=== PATIENT | female | born 1955 | race Hispanic/Latino ===

== ENCOUNTER 2019-07-07 15:32 | Inpatient (IN) | payer BC, MEDICARE ==
[~2019-07-07] VITALS: Ht 165.1 cm; Wt 82.1 kg
[~2019-07-07 15:32] MED LIST: CARVEDILOL12.5 MG PO; CLONIDINE HCL0.1 MG PO; COZAAR100 MG PO; TRAMADOL HCL50 MG PO; Z.0.CARVEDILOL12.5 M PO; Z.0.CATAPRES0.1 MG PO; Z.0.LOSARTAN POTAS10 PO; Z.0.PAROXETINE HCL20 PO
--- OUTSIDE RECORDS SUMMARY | 2019-07-11 15:13 | XMS REPORT ---
Author Author [facility] Address Unknown Phone Unavailable Care Team Providers Care Employee Relations Specialist Name Role Phone Unavailable Unavailable Problems This patient has no known problems. Allergies, Adverse Reactions, Alerts This patient has no known allergies or adverse reactions. Medications This patient has no known medications. Encounters Start Date/Time End Date/Time Encounter Type Admission Type Attending [facility] Care Department Encounter ID 2018-11-15 00:00:00 2018-11-15 00:00:00 Outpatient [facility] [id number] 2018-11-15 00:00:00 2018-11-15 00:00:00 Outpatient [facility] [id number] 2018-09-19 00:00:00 2018-09-19 00:00:00 Outpatient [facility] [id number] 2018-09-16 14:35:04 2018-09-16 14:35:04 Outpatient [facility] [id number] 2018-09-16 00:00:00 2018-09-16 00:00:00 Outpatient [facility] [id number] 2018-08-26 09:00:55 2018-08-26 09:00:55 Outpatient [facility] [id number] 2018-08-26 07:50:37 2018-08-26 07:50:37 Outpatient [facility] [id number] 2018-08-26 00:00:00 2018-08-26 00:00:00 Outpatient [facility] [id number] 2018-08-25 00:00:00 2018-08-25 00:00:00 Outpatient [facility] [id number] 2018-08-17 09:38:02 2018-08-17 09:38:02 Outpatient [facility] [id number] 2018-08-16 00:00:00 2018-08-16 00:00:00 Outpatient [facility] [id number] 2018-07-28 15:41:23 2018-07-28 15:41:23 Outpatient [facility] [id number] 2018-07-28 15:11:40 2018-07-28 15:11:40 Outpatient [facility] [id number] 2018-07-04 07:37:12 2018-07-04 07:37:12 Outpatient [facility] [id number] 2018-06-21 08:24:35 2018-06-21 08:24:35 Outpatient [facility] [id number] 2018-05-27 07:53:49 2018-05-27 07:53:49 Outpatient [facility] [id number] 2018-05-19 08:25:39 2018-05-19 08:25:39 Outpatient [facility] [id number] 2018-05-18 09:13:06 2018-05-18 09:13:06 Outpatient [facility] [id number] 2018-05-18 07:48:18 2018-05-18 07:48:18 Outpatient [facility] [id number] 2018-05-18 00:00:00 2018-05-18 00:00:00 Outpatient [facility] [id number] 2018-05-18 00:00:00 2018-05-18 00:00:00 Outpatient [facility] [id number] 2018-05-09 15:31:10 2018-05-09 15:31:10 Outpatient [facility] [id number] 2018-05-06 09:46:11 2018-05-06 09:46:11 Outpatient [facility] [id number] 2018-05-06 09:45:07 2018-05-06 09:45:07 Outpatient [facility] [id number] 2018-05-06 08:11:40 2018-05-06 08:11:40 Outpatient [facility] [id number]
--- NOTE | 2019-07-11 15:30 | NUR ---
PT ARRIVED TO THE UNIT. AAOX4. EDUCATED PT ABOUT FALL PRECAUTIONS. PT VERBALIZED UNDERSTANDING. CALL LIGHT WITH IN EASY REACH. BED IS LOW AND LOCKED. SIDE RAILS X2. BED ALARM IS ON. PT DENIES NEEDS AT THIS TIME.
--- NOTE | 2019-07-11 15:35 | NUR ---
PAGED DR. WILCOX AND LEFT MESSAGE REGARDING PT ARRIVAL. WAITING FOR THE RESPONSE FROM THE
[2019-07-11 16:00] VITALS: BP 145/66
[2019-07-11] MEDS ORDERED: SODIUM CHLORIDE 0.9% 250ML 250 ML IV ONE (16:00)
--- NOTE | 2019-07-11 16:00 | NUR ---
PAGED DR. Danii FLOWER REGARDING NEW CONSULT.
[2019-07-11] MEDS: INSULIN LISPRO 100 UNIT/1 ML 3ML VIAL SQ SCH ×2 (16:30→20:31)
[2019-07-11] MEDS ORDERED: DEXTROSE 50% SYRINGE 50 ML IV PRN ×2 (16:30→21:15)
[2019-07-11 16:36] VITALS: BP 157/74
[2019-07-11] MEDS ORDERED: METFORMIN HCL 500 MG TAB PO SCH (17:00)
[2019-07-11 17:12] LABS: BASOPHILS % 0.5 % (0.0-1.0); EOSINOPHILS # (AUTO) 0.3 (0.0-0.4); EOSINOPHILS % 3.8 % (0.0-6.0); HEMATOCRIT 24.3 % (34.2-44.1); HEMOGLOBIN 7.3 g/dL (12.0-16.0); LYMPHOCYTES # (AUTO) 1.6 (1.0-3.2); LYMPHOCYTES % 17.7 % (18.0-39.1); MEAN CORPUSCULAR HEMOGLOBIN 25.4 pg (28-32); MEAN CORPUSCULAR VOLUME 84.7 fL (81-99); MONOCYTES # (AUTO) 0.5 (0.2-0.8); MONOCYTES % 5.4 % (4.4-11.3); NEUTROPHILS # (AUTO) 6.3 (2.1-6.9); NEUTROPHILS % 71.9 % (38.7-80.0); PLATELET COUNT 354 x10e3/uL (140-360); RED BLOOD COUNT 2.87 x10e6/uL (3.6-5.1); RED CELL DISTRIBUTION WIDTH 15.1 % (11.7-14.4)
[2019-07-11] MEDS ORDERED: OMEPRAZOLE40 MG PO (17:28)
[2019-07-11] MEDS ORDERED: GABAPENTIN100 MG PO (17:28)
[2019-07-11] MEDS ORDERED: AMLODIPINE BESYL5 MG PO (17:28)
[2019-07-11] MEDS ORDERED: HYDROCHLOROTH12.5 MG PO (17:28)
[2019-07-11] MEDS ORDERED: METFORMIN HCL500 MG PO (17:28)
[2019-07-11] MEDS ORDERED: GLIMEPIRIDE2 MG PO (17:28)
[2019-07-11] MEDS ORDERED: FOLIC ACID0.4 MG PO (17:28)
[2019-07-11] MEDS ORDERED: ATORVASTATIN CA20 MG PO (17:28)
[2019-07-11 17:31] LABS: ALANINE AMINOTRANSFERASE 30 IU/L (0-55); ALBUMIN 3.8 g/dL (3.5-5.0); ALBUMIN/GLOBULIN RATIO 1.4 (0.8-2.0); ALKALINE PHOSPHATASE 81 IU/L (40-150); ANION GAP 14.2 mmol/L (8-16); BLOOD UREA NITROGEN 14 mg/dL (7-26); BUN/CREATININE RATIO 18 (6-25); CALCIUM 9.1 mg/dL (8.4-10.2); CARBON DIOXIDE 23 mmol/L (22-29); CHLORIDE 104 mmol/L (98-107); CREATININE, SERUM 0.77 mg/dL (0.57-1.11); EST GLOMERULAR FILTRATION RATE > 60 ML/MIN (60-); GLUCOSE 106 mg/dL (74-118); POTASSIUM 3.2 mmol/L (3.5-5.1); SODIUM 138 mmol/L (136-145)
[2019-07-11 17:33] VITALS: BP 157/74
[2019-07-11 17:34] LABS: INR 0.93
[2019-07-11 17:35] LABS: PARTIAL THROMBOPLASTIN TIME 29.4 seconds (23.8-35.5)
--- NOTE | 2019-07-11 17:44 | NUR ---
URDY WILCOX AND REPORTED HGB VALUE 7.3 AND K 3.2. 2 UNITS OF BLOOD TO GIVE PER DR. WILCOX.
[2019-07-11] MEDS: PANTOPRAZOLE 40 MG 10ML VIAL IV SCH (17:49)
[2019-07-11 17:55] VITALS: BP 145/66
[2019-07-11] MEDS ORDERED: POTASSIUM CHLORIDE 20 MEQ TAB CR PO ONE (18:15)
[2019-07-11 18:44] LABS: BILIRUBIN,URINE NEGATIVE (NEGATIVE); CLARITY,URINE SL CLOUDY (CLEAR); COLOR,URINE YELLOW (YELLOW); KETONES,URINE NEGATIVE (NEGATIVE); LEUKOCYTE ESTERASE ,URINE NEGATIVE (NEGATIVE); NITRITE,URINE NEGATIVE (NEGATIVE); PROTEIN,URINE DIPSTICK NEGATIVE (NEGATIVE); URINE UROBILINOGEN 0.2 mg/dL (0.2 - 1)
[2019-07-11 18:57] LABS: BACTERIA,URINE FEW /HPF; EPITHELIAL CELLS,URINE FEW /LPF; RBC,URINE 0-5 /HPF (0-5)
--- NOTE | 2019-07-11 19:00 | Diagnostic Imaging Report ---
EXAMINATION: CHEST 2 VIEWS INDICATION: ^new admit ^[id number] ^[id number] COMPARISON: None FINDINGS: PA and lateral views TUBES and LINES: None. LUNGS: Low lung volumes. There is no evidence of pneumonia or pulmonary edema. PLEURA: No pleural effusion or pneumothorax. HEART AND MEDIASTINUM: The cardiomediastinal silhouette is unremarkable. BONES AND SOFT TISSUES: No acute osseous lesion. Soft tissues are unremarkable. UPPER ABDOMEN: No free air under the diaphragm. IMPRESSION: No acute thoracic abnormality. Signed by: Dr. Maykel Gutierrez MD on 07/11/2019 6:57 PM
--- NOTE | 2019-07-11 19:05 | NUR ---
BEDSIDE SHIFT REPORT GIVEN TO THE SALES AGENT [employer] RN. PT DENIED FURTHER NEEDS.
--- NOTE | 2019-07-11 19:05 | NUR ---
Received bedside report from day nurse. Patient awake and resting in bed, no s/s of distress at this time. Bed locked and in low position, alarm on, call light placed within reach. Instructed to call for assistance if needed, verbalized understanding. All safety measures in place. Will continue to monitor.
[2019-07-11 20:10] VITALS: BP 135/67
[2019-07-11] MEDS: GABAPENTIN 100 MG CAP PO SCH (21:01)
[2019-07-11 21:47] VITALS: BP 135/67
--- NOTE | 2019-07-11 22:53 | History and Physical ---
CHIEF COMPLAINT: Black tarry stool. HISTORY OF PRESENT ILLNESS: This is a 63-year-old female with history of hypertension and type 2 diabetes, came in as a direct admission due to having black tarry stool ongoing for the last several days. The patient reports about 2 years ago in [place] she had an EGD, found to have a small bleeding ulcer, as what she told me at bedside, but could not elaborate further than that. She was told that the bleeding was very small. The patient now presents with complaints of black tarry stool. Denies any epigastric abdominal pain. Denies any [id number] NSAIDs. The patient is seen and evaluated at bedside on the medical floor. She is currently doing well with no other issues at this time. Reports last black tarry stool was yesterday. REVIEW OF SYSTEMS: Pertinent positives: Black tarry stool. The rest of 14-point review of systems have been reviewed with the patient and are negative. ALLERGIES: TO CODEINE. HOME MEDICATIONS: Amlodipine, Lipitor, gabapentin, loperamide, losartan, metformin, omeprazole, folic acid, hydrochlorothiazide. PAST MEDICAL HISTORY: Type 2 diabetes, hypertension, morbidly obese, history of gastric ulcer, and iron deficiency. PAST SURGICAL HISTORY: Had an EGD two years ago in [place]. FAMILY HISTORY: Hypertension and diabetes. SOCIAL HISTORY: No drugs. No alcohol. Does not smoke. Good social support. PHYSICAL EXAMINATION: VITAL SIGNS: Temperature is 98.6, pulse 81, respiratory rate is 18, blood pressure 135/67, and pulse ox 100% on 2 L nasal cannula. GENERAL: No acute distress. Alert and oriented x3. Cooperative on examination. HEENT: Head is normocephalic and atraumatic. Eyes; pupils are equal, round and reactive to light bilaterally. Extraocular movements intact bilaterally. Throat; no evidence of erythema or exudates in the posterior pharynx. Has poor dentition. NECK: Supple. Good range of motion. PULMONARY: Clear to auscultation bilaterally. No wheezing, rales, or rhonchi. No crackles appreciated. CARDIOVASCULAR: Positive S1, S2. No murmurs, rubs, or gallops appreciated. ABDOMEN: Soft, nondistended, and nontender to palpation. Bowel sounds present. MUSCULOSKELETAL: Strength is 5/5 throughout. No evidence of any muscle deficits on examination. No weakness appreciated. NEUROLOGIC: Cranial nerves II through XII grossly intact. No evidence of any neurological deficits on exam. SKIN: Intact. Warm to touch. Good cap refill. PSYCHIATRIC: Normal affect and mood. EXTREMITIES: No edema. Good range of motion throughout. LABORATORY DATA: Labs show white count is 8.7, hemoglobin 7.3, hematocrit 24, platelets of 354. Coagulation; PT 13, INR 0.93, PTT 29. Chemistry; sodium 138, potassium 3.3, chloride 104, bicarb 23, anion gap of 14, BUN is 14, creatinine 0.77, glucose 106. A1c 5.5, calcium 9.1. LFTs within normal range. Total protein 6.6, albumin is 3.8. Urinalysis was negative. Microbiology, none. IMAGING STUDIES: Chest x-ray was negative. IMPRESSION: 1. Black tarry stool concerns for upper GI bleed with underlying anemia. 2. Hypertension. 3. Type 2 diabetes. PLAN: At this time, continue with Protonix 40 mg IV b.i.d. N.p.o. after midnight. GI consulted. The patient will likely need an EGD possibly tomorrow. Now, like the patient has an upper GI bleed based on her story, of note has had an EGD about two years ago, was told that she had some small area of bleeding, seems to be more of an ulcer based on her story. Hold all NSAIDs. The patient will get 2 units packed RBCs. She has been typed and screened as well. Resume same antihypertensive medications. Put her on insulin sliding scale. Diabetic diet. N.p.o. after midnight. Hold all anticoagulation. Consultants, GI. MD JAKE Hernandez/LAYLA /[id number]
[2019-07-11] MEDS ORDERED: SODIUM CHLORIDE 0.9% 250ML 250 ML ONE (23:17)
--- NOTE | 2019-07-11 23:37 | NUR ---
Transfusion of first unit of blood initiated. Patient in stable condition, no s/s of distress or transfusion reaction, vital signs stable from baseline. Will continue to monitor.
--- NOTE | 2019-07-11 23:52 | NUR ---
Dr. Alanis here to see patient. Plans to do EGD tomorrow. Will place patient on NPO diet after midnight.
[2019-07-12] VITALS (8 sets, daily range): BP systolic 104–160; BP diastolic 61–75
--- NOTE | 2019-07-12 02:02 | NUR ---
Transfusion of first unit of blood completed. Vital signs stable from baseline, no s/s of distress or transfusion reaction. Will administer second unit.
[2019-07-12] MEDS ORDERED: SODIUM CHLORIDE 0.9% 250ML 250 ML ONE (02:14)
--- NOTE | 2019-07-12 02:29 | NUR ---
Transfusion of second unit of blood initiated. Patient in stable condition, vital signs stable from baseline, no s/s of distress or transfusion reaction. Will continue to monitor.
--- NOTE | 2019-07-12 05:02 | NUR ---
Second unit of blood completed. Patient in stable condition, vital signs stable from baseline, no s/s of distress or transfusion reaction. All safety measures in place. Will continue to monitor.
--- NOTE | 2019-07-12 06:58 | NUR ---
Bedside report given to day nurse. Patient awake and resting in bed, no s/s of distress at this time. All safety measures in place.
--- NOTE | 2019-07-12 07:00 | NUR ---
RECEIVED PATIENT AWAKE RESTING IN BED NO S/S OF DISTRESS. BED LOW, WHEELS LOCKED, SIDE RAILS X2. CALL LIGHT IN REACH WILL CONTINUE TO MONITOR PATIENT.
[2019-07-12] MEDS: INSULIN LISPRO 100 UNIT/1 ML 3ML VIAL SQ SCH ×4 (07:30→21:00)
[2019-07-12] MEDS: GABAPENTIN 100 MG CAP PO SCH ×3 (07:37→21:57)
[2019-07-12 07:38] LABS: BASOPHILS % 0.4 % (0.0-1.0); EOSINOPHILS # (AUTO) 0.4 (0.0-0.4); EOSINOPHILS % 4.3 % (0.0-6.0); HEMATOCRIT 29.1 % (34.2-44.1); HEMOGLOBIN 9.2 g/dL (12.0-16.0); LYMPHOCYTES % 24.1 % (18.0-39.1); MEAN CORPUSCULAR HEMOGLOBIN 26.6 pg (28-32); MEAN CORPUSCULAR HGB CONC 31.6 g/dL (31-35); MEAN CORPUSCULAR VOLUME 84.1 fL (81-99); MONOCYTES # (AUTO) 0.4 (0.2-0.8); NEUTROPHILS # (AUTO) 5.5 (2.1-6.9); NEUTROPHILS % 65.5 % (38.7-80.0); PLATELET COUNT 327 x10e3/uL (140-360); RED BLOOD COUNT 3.46 x10e6/uL (3.6-5.1); RED CELL DISTRIBUTION WIDTH 14.6 % (11.7-14.4)
[2019-07-12] MEDS ORDERED: GLIMEPIRIDE 2 MG TAB PO SCH (08:00)
[2019-07-12 08:24] LABS: % IRON SATURATION 10 % (15-50); BLOOD UREA NITROGEN 13 mg/dL (7-26); BUN/CREATININE RATIO 17 (6-25); CARBON DIOXIDE 24 mmol/L (22-29); CHLORIDE 105 mmol/L (98-107); CREATININE, SERUM 0.75 mg/dL (0.57-1.11); EST GLOMERULAR FILTRATION RATE > 60 ML/MIN (60-); GLUCOSE 115 mg/dL (74-118); IRON 38 ug/dL (50-170); SODIUM 139 mmol/L (136-145); TOTAL IRON BINDING CAPACITY 382 ug/dL (261-478); TRANSFERRIN 273 mg/dL (180-382)
[2019-07-12] MEDS: PANTOPRAZOLE 40 MG 10ML VIAL IV SCH ×2 (08:30→16:30)
[2019-07-12 08:46] LABS: FERRITIN 10.58 ng/mL (4.63-204.00)
--- NOTE | 2019-07-12 10:25 | NUR ---
Pt. expressed no spiritual or emotional concerns at this time. Civil Lawyer provided hospitality, prayer and information on how to reach deckhand clam dredge, if needed. No need to follow at this time. TENISHA DIEGO Civil Lawyer Spiritual Care Department O: [phone]
--- NOTE | 2019-07-12 10:30 | NUR ---
PATIENT A/O X3, EVEN RESPIRATIONS ON 2LNC. LUNG SOUNDS CLEAR. LEFT AC 20 GAUGE IV SL. PATIENT NPO FOR EGD TODAY. NO PAIN AT THIS TIME. PATIENT AMBULATES INDEPENDENTLY. TELEMETRY #6 SR. CALL LIGHT IN REACH WILL CONTINUE TO MONITOR PATIENT.
--- NOTE | 2019-07-12 13:31 | NUR ---
PATIENT LEFT FOR EGD AT THIS TIME IN STABLE CONDITION.
--- NOTE | 2019-07-12 15:35 | NUR ---
PATIENT BACK FROM EGD IN STABLE CONDITION. NO S/S OF DISTRESS. CALL LIGHT IN REACH WILL CONTINUE TO MONITOR PATIENT.
[2019-07-12] MEDS: HYDROCHLOROTHIAZIDE 25 MG TAB PO SCH (16:30)
[2019-07-12] MEDS: AMLODIPINE BESYLATE 5 MG TAB PO SCH (16:30)
[2019-07-12] MEDS: ATORVASTATIN 10 MG TAB PO SCH (16:30)
[2019-07-12] MEDS: LOSARTAN POTASSIUM 100 MG TAB PO SCH (16:30)
[2019-07-12] MEDS: FERROUS SULFATE 325 MG TAB PO SCH (16:30)
[2019-07-12] MEDS: FOLIC ACID 1 MG TAB PO SCH (16:30)
--- NOTE | 2019-07-12 19:30 | NUR ---
BEDSIDE SHIFT REPORT RECEIVED FROM DAY RN. PT IS ALERT AND ORIENTED x3. RESPIRATIONS ARE EVEN AND UNLABORED.TELE ON. SL LEFT AC 20 G- SITE HEALTHY. DENIES PAIN. VOIDING WITHOUT DIFFICULTY IN BATHROOM. CALL LIGHT WITHIN REACH. BED IN LOW POSITION. REMAINS ON CLEAR LIQUIDS.
[2019-07-12] MEDS ORDERED: PROPOFOL IV EMULSION 10 MG/ML 50 ML VIAL ONE (19:42)
[2019-07-12] MEDS ORDERED: MIDAZOLAM HCL 2 MG/2 ML VIAL ONE (20:00)
--- NOTE | 2019-07-12 20:17 | Operative Report ---
DATE OF PROCEDURE: 07/12/2019 SURGEON: Beto Alanis MD PROCEDURE: EGD with polypectomy and with biopsies. ADDITIONAL REFERRING PHYSICIAN: Dr. Harsh Benoit. INDICATION FOR EGD: Anemia, melena. MEDICATIONS: The patient was done under MAC, please see anesthesiologist's note. PROCEDURE IN DETAIL: With the patient in left lateral decubitus position, a flexible fiberoptic Olympus gastroscope was introduced into the esophagus under direct visualization without any difficulty. There were some patchy erythema noted in distal esophagus. There was a minute tongue of velvety red mucosa was noted to extend proximally from the GE junction and biopsies were obtained to rule out Myers's. The scope was then advanced with ease into the stomach. Mucosa overlying the antrum and the body revealed some patchy erythema and moderate edema, and biopsies were obtained, sent to stain for H. pylori. Some hyperplastic-appearing polyps were also noted in the body of the stomach and some were partially excised with cold biopsy forceps. The pylorus was of normal contour and shape, it was intubated with ease and the scope was advanced all the way to the second portion of the duodenum. The scope was then withdrawn slowly. Mucosa overlying the proximal second portion and the duodenal bulb appeared to be within normal limits. The scope was then withdrawn back into the stomach and retroflexed. Mucosa overlying the fundus and the cardia appeared to be within normal limits. The scope was then straightened out, it was subsequently withdrawn. The patient tolerated the procedure well. IMPRESSION: 1. Distal esophagitis, mild. 2. Rule out Myers esophagus. 3. Gastritis, biopsied. Biopsies sent to stain for Helicobacter pylori. 4. Gastric polyps, body, hyperplastic-appearing, some were partially excised with the cold biopsy forceps. PLAN: Follow up histology. Initiate Protonix 40 mg one p.o. q.a.m. before meals. Findings do not necessarily explain the patient's melena or anemia. She will need a colonoscopy. Beto Alanis MD [facility]/MODL /[id number] cc: MD Galilea Gonzalez MD
--- NOTE | 2019-07-12 22:47 | Progress Note ---
DATE: 07/12/2019 Medicine Progress Note SUBJECTIVE: The patient is scheduled for EGD later today. OBJECTIVE: VITAL SIGNS: Temperature is 97.3, pulse is 90, respiratory rate is 18, blood pressure is 160/71, pulse ox 97% on 2 L nasal cannula. GENERAL: No acute distress. Alert and oriented x3. Cooperative on examination. HEENT: Head is normocephalic and atraumatic. Eyes; pupils are equal, round, and reactive to light bilaterally. Extraocular movements intact bilaterally. Throat; no evidence of erythema or exudates in the posterior pharynx. She has poor dentition. NECK: Supple. Good range of motion. PULMONARY: Clear to auscultation bilaterally. No wheezing, rales, or rhonchi. No crackles appreciated. CARDIOVASCULAR: Positive S1 and S2. No murmurs, rubs, or gallops appreciated. ABDOMEN: Soft, nondistended, and nontender to palpation. Bowel sounds present. MUSCULOSKELETAL: Strength is 5/5 throughout. No evidence of any muscle deficits on examination. No weakness appreciated. NEUROLOGIC: Cranial nerves II through XII grossly intact. No evidence of any neurological deficits on exam. SKIN: Intact. Warm to touch. Good cap refill. PSYCHIATRIC: Normal affect and mood. EXTREMITIES: No edema. Good range of motion throughout. LABORATORY DATA: Show white count was 8.3, hemoglobin 9.2, hematocrit is 29.1, and platelets of 327. Chemistry; sodium 139, potassium 4, chloride 105, bicarb 24, anion gap of 14, BUN is 13, creatinine is 0.75, glucose is 115. Iron saturation 10%. IMAGING STUDIES: None new. IMPRESSION: 1. Melena, concerns for upper gastrointestinal bleed, now status post EGD that showed esophagitis and gastritis. 2. Anemia, status post blood transfusion. 3. Hypertension. 4. Type 2 diabetes. PLAN: At this time, EEG results noted above. She will go home eventually with oral Protonix 40 mg daily. She is now initiated on a regular diet. She will need a colonoscopy at a later date. If she does well, she can potentially be discharged home tomorrow. Galilea Morejon MD [facility]/MODL /[id number]
[2019-07-12] MEDS ORDERED: BISACODYL 5 MG TAB EC PO ONE ×2 (23:15)
--- NOTE | 2019-07-12 23:15 | NUR ---
DR FLOWER HERE TO SEE PT. PT IS TO HAVE COLONOSCOPY IN AM. NEW ORDERS FOR PREP RECEIVED. PT NPO AFTER 0700. INSTRUCTIONS REVEIWED WITH PT.
[2019-07-12] MEDS ORDERED: BISACODYL 5 MG TAB EC PO SCH (23:45)
[2019-07-13] VITALS (8 sets, daily range): BP systolic 131–149; BP diastolic 63–70
[2019-07-13] MEDS ORDERED: CITRATE OF MAGNESIA 300ML BOTTLE PO ONE ×2 (05:00→07:00)
[2019-07-13 06:02] LABS: BASOPHILS # (AUTO) 0.1 (0.0-0.1); BASOPHILS % 0.5 % (0.0-1.0); EOSINOPHILS # (AUTO) 0.4 (0.0-0.4); EOSINOPHILS % 4.3 % (0.0-6.0); HEMATOCRIT 33.4 % (34.2-44.1); HEMOGLOBIN 10.5 g/dL (12.0-16.0); LYMPHOCYTES # (AUTO) 2.2 (1.0-3.2); LYMPHOCYTES % 23.2 % (18.0-39.1); MEAN CORPUSCULAR HEMOGLOBIN 26.1 pg (28-32); MEAN CORPUSCULAR HGB CONC 31.4 g/dL (31-35); MEAN CORPUSCULAR VOLUME 83.1 fL (81-99); MONOCYTES # (AUTO) 0.7 (0.2-0.8); NEUTROPHILS # (AUTO) 6.1 (2.1-6.9); NEUTROPHILS % 64.5 % (38.7-80.0); PLATELET COUNT 433 x10e3/uL (140-360); RED BLOOD COUNT 4.02 x10e6/uL (3.6-5.1); RED CELL DISTRIBUTION WIDTH 14.8 % (11.7-14.4)
[2019-07-13 06:22] LABS: ANION GAP 14.4 mmol/L (8-16); BLOOD UREA NITROGEN 8 mg/dL (7-26); BUN/CREATININE RATIO 10 (6-25); CALCIUM 9.9 mg/dL (8.4-10.2); CARBON DIOXIDE 24 mmol/L (22-29); CHLORIDE 103 mmol/L (98-107); CREATININE, SERUM 0.83 mg/dL (0.57-1.11); EST GLOMERULAR FILTRATION RATE > 60 ML/MIN (60-); GLUCOSE 122 mg/dL (74-118); POTASSIUM 3.4 mmol/L (3.5-5.1); SODIUM 138 mmol/L (136-145)
--- NOTE | 2019-07-13 07:00 | NUR ---
RECEIVED PATIENT AWAKE RESTING IN BED NO S/S OF DISTRESS. BED LOW, WHEELS LOCKED, SIDE RAILS X2. CALL LIGHT IN REACH WILL CONTINUE TO MONITOR PATIENT.
[2019-07-13] MEDS: INSULIN LISPRO 100 UNIT/1 ML 3ML VIAL SQ SCH ×4 (07:30→20:25)
[2019-07-13] MEDS: GABAPENTIN 100 MG CAP PO SCH ×3 (07:49→21:01)
[2019-07-13] MEDS: PANTOPRAZOLE 40 MG 10ML VIAL IV SCH ×2 (07:57→16:34)
--- NOTE | 2019-07-13 11:28 | NUR ---
PATIENT LEFT FOR COLONOSCOPY AT THIS TIME IN STABLE CONDITION.
[2019-07-13] MEDS ORDERED: BISACODYL 5 MG TAB EC PO ONE (12:15)
--- NOTE | 2019-07-13 13:27 | NUR ---
PATIENT BACK FROM COLONOSCOPY IN STABLE CONDITION. NO S/S OF DISTRESS.
[2019-07-13] MEDS: FERROUS SULFATE 325 MG TAB PO SCH (14:29)
[2019-07-13] MEDS: FOLIC ACID 1 MG TAB PO SCH (14:29)
[2019-07-13] MEDS: LOSARTAN POTASSIUM 100 MG TAB PO SCH (14:29)
[2019-07-13] MEDS: ATORVASTATIN 10 MG TAB PO SCH (14:29)
[2019-07-13] MEDS: HYDROCHLOROTHIAZIDE 25 MG TAB PO SCH (14:29)
[2019-07-13] MEDS: AMLODIPINE BESYLATE 5 MG TAB PO SCH (14:30)
[2019-07-13] MEDS ORDERED: FENTANYL CITRATE/PF 100MCG/2 ML INJ ONE (18:58)
[2019-07-13] MEDS ORDERED: MIDAZOLAM HCL 2 MG/2 ML VIAL ONE (18:58)
--- NOTE | 2019-07-13 19:32 | NUR ---
RECEIVED SHIFT REPORT FROM DAY RN AT BEDSIDE. PT IS ALERT AND ORIENTED X3. PT UP IN ROOM. 20G SL IN LEFT AC INTACT. RESPIRATIONS ARE EVEN AND UNLABORED. PT VOIDING WITHOUT DIFFICULTY. CALL LIGHT WITHIN REACH. BED IN LOW POSITION.PT DENIES PAIN.
--- NOTE | 2019-07-13 19:41 | Operative Report ---
DATE OF PROCEDURE: 07/13/2019 SURGEON: Beto Alanis MD PROCEDURE: Colonoscopy with polypectomy and biopsies. INDICATION FOR COLONOSCOPY: Anemia, melena. EGD findings did not explain the patient's anemia or the melenic stools. MEDICATIONS: The patient was done under MAC, please see anesthesiologist's note. PROCEDURE IN DETAIL: With the patient in left lateral decubitus position, a flexible fiberoptic Olympus colonoscope was inserted into the rectum with ease and advanced all the way to the cecum. One polyp was hot snared from the cecum. An additional polyp was hot snared from the ascending colon. The transverse colon was within normal limits. One polyp was hot snared from the descending colon. The sigmoid colon appeared to be within normal limits. Focal nodularity was noted in the distal rectum, that was biopsied. The scope was then retroflexed into the distal rectum and small internal hemorrhoids were noted, none of which was actively bleeding. The scope was then straightened out, it was subsequently withdrawn. The patient tolerated the procedure well. IMPRESSION: 1. Cecal polyp, hot snared. 2. Ascending colon polyp, hot snared. 3. Descending colon polyp, hot snared. 4. Focal nodularity in the distal rectum, biopsied. 5. Internal hemorrhoids, none actively bleeding. PLAN: Follow up histology. Initiate high-fiber, low-fat diet. Initiate high-fiber supplement. The patient will need a capsule endoscopy. Beto Alanis MD [facility]/MODL /[id number] cc: Galilea Morejon MD
[2019-07-13] MEDS ORDERED: POTASSIUM CHLORIDE 20 MEQ TAB CR PO ONE (21:30)
--- NOTE | 2019-07-13 22:20 | Progress Note ---
DATE: 07/13/2019 Medicine Progress Note SUBJECTIVE: The patient is doing well today. She underwent a colonoscopy. PHYSICAL EXAMINATION: VITAL SIGNS: Temperature is 97.4, pulse 83, respiratory rate 16, blood pressure 138/65, pulse ox 97% on room air. GENERAL: Not in acute distress. Alert and oriented x3. Cooperative on examination. HEENT: Head; normocephalic, atraumatic. Eyes; pupils are equal, round, and reactive to light bilaterally. Extraocular movements intact bilaterally. Throat; no evidence of erythema or exudates in the posterior pharynx. Has poor dentition. NECK: Supple. Good range of motion. PULMONARY: Clear to auscultation bilaterally. No wheezing, no rales, no rhonchi, no crackles appreciated. CARDIOVASCULAR: Positive S1 and S2. No murmurs, rubs, or gallops appreciated. ABDOMEN: Soft, nondistended, and nontender to palpation. Bowel sounds present. MUSCULOSKELETAL: Strength is 5/5 throughout. No evidence of any muscle deficits on examination. No weakness appreciated. NEUROLOGIC: Cranial nerve II through XII grossly intact. No evidence of any neurological deficits on exam. SKIN: Intact. Warm to touch. Good cap refill. PSYCHIATRIC: Normal affect and mood. EXTREMITIES: No edema. Good range of motion throughout. LABORATORY DATA: Show white count 9.4, hemoglobin 10.5, hematocrit is 33, platelets of 433. Coagulation; PT 13, INR 0.93, PTT 29. Chemistry; sodium 138, potassium 3.4, chloride 103, bicarb 24, anion gap of 14, BUN is 8, creatinine is 0.83, glucose is 122. MICROBIOLOGY: None. IMAGING STUDIES: None. IMPRESSION: 1. Melena concerns for upper gastrointestinal bleed, status post esophagogastroduodenoscopy shows esophagitis and gastritis, status post colonoscopy with no evidence of any active bleeding. 2. Anemia, status post blood transfusion with much improved hemoglobin. 3. Hypertension. 4. Type 2 diabetes. PLAN: EGD results noted. She is on Protonix. Colonoscopy performed today shows evidence of polyps that were removed, but no evidence of any bleeding. If her hemoglobin is stable tomorrow, discharge home. Resume diet. Plan to discharge tomorrow. MD JAKE Hernandez/RUDDYL /[id number]
[2019-07-14] VITALS: BP 123/63
[2019-07-14 04:00] VITALS: BP 138/69
[2019-07-14 06:33] LABS: BASOPHILS # (AUTO) 0.1 (0.0-0.1); BASOPHILS % 0.5 % (0.0-1.0); EOSINOPHILS # (AUTO) 0.3 (0.0-0.4); EOSINOPHILS % 3.7 % (0.0-6.0); HEMATOCRIT 32.6 % (34.2-44.1); HEMOGLOBIN 10.1 g/dL (12.0-16.0); LYMPHOCYTES # (AUTO) 1.9 (1.0-3.2); LYMPHOCYTES % 20.4 % (18.0-39.1); MEAN CORPUSCULAR HEMOGLOBIN 25.9 pg (28-32); MEAN CORPUSCULAR VOLUME 83.6 fL (81-99); MONOCYTES # (AUTO) 0.6 (0.2-0.8); MONOCYTES % 6.3 % (4.4-11.3); NEUTROPHILS # (AUTO) 6.3 (2.1-6.9); NEUTROPHILS % 68.6 % (38.7-80.0); PLATELET COUNT 352 x10e3/uL (140-360); RED CELL DISTRIBUTION WIDTH 14.9 % (11.7-14.4)
[2019-07-14 06:47] LABS: ANION GAP 12.9 mmol/L (8-16); BLOOD UREA NITROGEN 11 mg/dL (7-26); BUN/CREATININE RATIO 12 (6-25); CALCIUM 9.4 mg/dL (8.4-10.2); CARBON DIOXIDE 27 mmol/L (22-29); CHLORIDE 103 mmol/L (98-107); EST GLOMERULAR FILTRATION RATE > 60 ML/MIN (60-); GLUCOSE 145 mg/dL (74-118); POTASSIUM 3.9 mmol/L (3.5-5.1); SODIUM 139 mmol/L (136-145)
--- NOTE | 2019-07-14 07:00 | NUR ---
BEDSIDE SHIFT REPORT RECEIVED PT IN STABLE CONDITION, DENIES PAIN AT THIS TIME, UPDATED ON POC VOCIED UNDERSTANDING, L AC 20G NO SS OF INFILTRATION NOTED, CALL LIGHT IN REACH WILL CONTINUE TO MONITOR
[2019-07-14] MEDS: INSULIN LISPRO 100 UNIT/1 ML 3ML VIAL SQ SCH ×2 (07:30→11:30)
[2019-07-14 08:00] VITALS: BP 132/73
[2019-07-14 08:51] VITALS: BP 132/73
[2019-07-14] MEDS: GABAPENTIN 100 MG CAP PO SCH (09:17)
[2019-07-14] MEDS: PANTOPRAZOLE 40 MG 10ML VIAL IV SCH (09:17)
[2019-07-14] MEDS: FOLIC ACID 1 MG TAB PO SCH (09:17)
[2019-07-14] MEDS: FERROUS SULFATE 325 MG TAB PO SCH (09:17)
[2019-07-14] MEDS: HYDROCHLOROTHIAZIDE 25 MG TAB PO SCH (09:17)
[2019-07-14] MEDS: ATORVASTATIN 10 MG TAB PO SCH (09:17)
[2019-07-14] MEDS: LOSARTAN POTASSIUM 100 MG TAB PO SCH (09:17)
[2019-07-14] MEDS: AMLODIPINE BESYLATE 5 MG TAB PO SCH (09:17)
[2019-07-14 12:00] VITALS: BP 131/68
--- NOTE | 2019-07-14 22:24 | Discharge Summary ---
FINAL DISCHARGE DIAGNOSES: 1. Melena secondary to upper gastrointestinal bleed, status post EGD that showed esophagitis and gastritis, status post colonoscopy with no evidence of any active bleeding. 2. Anemia secondary to #1. 3. Hypertension. 4. Type 2 diabetes. CONSULTANTS: GI. VITAL SIGNS: Temperature is 97.9, pulse 76, respirations 20, blood pressure 131/68, pulse ox 97% on room air. LABORATORY FINDINGS: Show white count 9.2, hemoglobin 10, hematocrit 33, platelets of 352. Chemistry; sodium 139, potassium 3.9, chloride 103, bicarb 27, anion gap of 12, BUN is 11, creatinine is 0.9, glucose 145, calcium is 9.4. Iron saturation was 10%. Total bilirubin is 0.4, AST 25, ALT 30, albumin 3.8. Urinalysis negative. MICROBIOLOGY: None. IMAGING STUDIES: Chest x-ray was negative. HOSPITAL COURSE: A 63-year-old female, who came in as a direct admission from Dr. Harsh Benoit's clinic with worsening hemoglobin levels and complaints of black tarry stool. While here, the patient was found to have a hemoglobin level of 7.3, status post blood transfusion with a hemoglobin level on discharge of 10.1. The patient underwent EGD, found to have gastritis and esophagitis as well as underwent colonoscopy that showed no evidence of any bleeding. While here, she was on Protonix b.i.d. orally. Her hemoglobin improved tremendously. Blood pressure and diabetes were well managed and controlled. She was tolerating diet well and she was cleared for discharge by GI. On the day of discharge, vital signs were stable. Labs reviewed and stable. The patient is seen and evaluated and examined thoroughly on the day of discharge with no other complaints. The patient verbalized understanding and agrees to plan of care to follow up accordingly as an outpatient with primary care physician in 1 week and GI specialist in 2 weeks' time for close followup as well as pathology results of the biopsies. MEDICATIONS: See med reconciliation form. DISPOSITION: Home. CONDITION: Stable. DIET: Heart healthy. In the event of worsening symptoms, the patient was advised come back to the ED for further evaluation. Discharge summary took greater than 35 minutes. MD JAKE Hernandez/RUDDYL /[id number]
== END 2019-07-14 14:42 | disposition home or self-care (01) | DRG 378 ==
LOC: MED/SURG 07-11 15:10
PROVIDERS: ADMIT Internal Medicine; ATTEND Internal Medicine
PROC: 30233N1 Transfusion of Nonautologous Red Blood Cells into Peripheral Vein, Percutaneous Approach (ICD-10-PCS; principal; 2019-07-11)
PROC: 0DB68ZX Excision of Stomach, Via Natural or Artificial Opening Endoscopic, Diagnostic (ICD-10-PCS; 2019-07-12)
PROC: 0DBK8ZX Excision of Ascending Colon, Via Natural or Artificial Opening Endoscopic, Diagnostic (ICD-10-PCS; 2019-07-13)
PROC: 0DBP8ZX Excision of Rectum, Via Natural or Artificial Opening Endoscopic, Diagnostic (ICD-10-PCS; 2019-07-13)
PROC: 0DBM8ZX Excision of Descending Colon, Via Natural or Artificial Opening Endoscopic, Diagnostic (ICD-10-PCS; 2019-07-13)
PROC: 0DBH8ZX Excision of Cecum, Via Natural or Artificial Opening Endoscopic, Diagnostic (ICD-10-PCS; 2019-07-13)
DX: K29.71 Gastritis, unspecified, with bleeding (principal); D62 Acute posthemorrhagic anemia; K31.7 Polyp of stomach and duodenum; D12.0 Benign neoplasm of cecum; K63.5 Polyp of colon; K64.8 Other hemorrhoids; K62.89 Other specified diseases of anus and rectum; I10 Essential (primary) hypertension; E11.9 Type 2 diabetes mellitus without complications; E66.01 Morbid (severe) obesity due to excess calories; Z82.49 Family history of ischemic heart disease and other diseases of the circulatory system; Z83.3 Family history of diabetes mellitus; D64.9 Anemia, unspecified; K20.9 Esophagitis, unspecified; K29.70 Gastritis, unspecified, without bleeding; Z68.30 Body mass index [BMI] 30.0-30.9, adult; Z79.84 Long term (current) use of oral hypoglycemic drugs
CPT/HCPCS: 36415; 43235; 45380; 45385; 71046; 80048; 80053; 81001; 82728; 82948; 83036; 83540; 84466; 85025; 85610; 85730; 86850; 86900; 86920; 88305; 88312; 93005; J2250; J3010; J7050; P9016

== ENCOUNTER 2020-03-26 14:24 | Inpatient (IN) | payer BC, MEDICARE, OTHER ==
[~2020-03-26] VITALS: Ht 317.5 cm; Wt 81.6 kg
[~2020-03-26 14:24] MED LIST changes: +AMLODIPINE BESYL5 MG PO; +ATORVASTATIN CA20 MG PO; +FOLIC ACID0.4 MG PO; +GABAPENTIN100 MG PO; +GLIMEPIRIDE2 MG PO; +HYDROCHLOROTH12.5 MG PO; +METFORMIN HCL500 MG PO; +OMEPRAZOLE40 MG PO
[2020-03-26] MEDS ORDERED: SODIUM CHLORIDE 0.9% 250ML 250 ML IV ONE (15:15)
[2020-03-26 16:08] LABS: BASOPHILS % 0.4 % (0.0-1.0); EOSINOPHILS # (AUTO) 0.2 (0.0-0.4); EOSINOPHILS % 2.1 % (0.0-6.0); LYMPHOCYTES # (AUTO) 1.8 (1.0-3.2); LYMPHOCYTES % 24.9 % (18.0-39.1); MEAN CORPUSCULAR HEMOGLOBIN 20.9 pg (28-32); MEAN CORPUSCULAR HGB CONC 25.9 g/dL (31-35); MONOCYTES # (AUTO) 0.5 (0.2-0.8); MONOCYTES % 6.9 % (4.4-11.3); NEUTROPHILS # (AUTO) 4.6 (2.1-6.9); NEUTROPHILS % 64.7 % (38.7-80.0); PLATELET COUNT 415 x10e3/uL (140-360); RED BLOOD COUNT 2.53 x10e6/uL (3.6-5.1); RED CELL DISTRIBUTION WIDTH 16.9 % (11.7-14.4)
[2020-03-26 16:10] LABS: HEMATOCRIT 20.5 % (34.2-44.1); HEMOGLOBIN 5.3 g/dL (12.0-16.0)
[2020-03-26 16:26] LABS: ALANINE AMINOTRANSFERASE 31 IU/L (0-55); ALBUMIN 3.7 g/dL (3.5-5.0); ALBUMIN/GLOBULIN RATIO 1.2 (0.8-2.0); ALKALINE PHOSPHATASE 73 IU/L (40-150); ANION GAP 14.7 mmol/L (8-16); BLOOD UREA NITROGEN 20 mg/dL (7-26); BUN/CREATININE RATIO 23 (6-25); CALCIUM 8.6 mg/dL (8.4-10.2); CARBON DIOXIDE 23 mmol/L (22-29); CHLORIDE 106 mmol/L (98-107); CREATINE KINASE 57 IU/L (29-168); CREATININE, SERUM 0.88 mg/dL (0.57-1.11); EST GLOMERULAR FILTRATION RATE > 60 ML/MIN (60-); GLUCOSE 111 mg/dL (74-118); POTASSIUM 3.7 mmol/L (3.5-5.1); SODIUM 140 mmol/L (136-145)
[2020-03-26 16:44] LABS: BAND NEUTROPHILS % (MANUAL) 2 %; EOSINOPHILS % (MANUAL) 2 % (0-7); LYMPHOCYTES % (MANUAL) 17 % (19-48); MONOCYTES % (MANUAL) 5 % (3.4-9.0); NEUTROPHILS % (MANUAL) 73 % (40-74); NUCLEATED RED BLOOD CELLS 1
[2020-03-26 16:45] LABS: ANISOCYTOSIS FEW; HYPOCHROMASIA MOD; PLATELET ESTIMATE ADEQUATE; PLATELET MORPHOLOGY COMMENT NORMAL; POLYCHROMASIA FEW; RBC MORPHOLOGY COMMENT ABNORMAL; STOMATOCYTES FEW
[2020-03-26 18:35] VITALS: BP 141/73
[2020-03-26 20:00] VITALS: BP 142/62
[2020-03-26 20:11] VITALS: BP 142/62
[2020-03-26] MEDS ORDERED: METOPROLOL SUCC50 MG PO (23:42)
[2020-03-26] MEDS ORDERED: SUCRALFATE1 GM PO (23:47)
[2020-03-26] MEDS ORDERED: DICYCLOMINE HCL20 MG PO (23:51)
[2020-03-26] MEDS ORDERED: FERROUS SULFAT325 MG PO (23:51)
[2020-03-26] MEDS ORDERED: POTASSIUM99 M1 (23:57)
[2020-03-27] VITALS (10 sets, daily range): BP systolic 119–158; BP diastolic 56–78
[2020-03-27] MEDS ORDERED: PANTOPRAZOLE 40 MG 10ML VIAL IV STA (01:14)
[2020-03-27] MEDS ORDERED: HYDRALAZINE HCL 20 MG/ML VIAL IV PRN (01:15)
[2020-03-27] MEDS ORDERED: DEXTROSE 50% SYRINGE 50 ML IV PRN (01:15)
[2020-03-27 06:58] LABS: BASOPHILS % 0.6 % (0.0-1.0); EOSINOPHILS # (AUTO) 0.2 (0.0-0.4); EOSINOPHILS % 2.4 % (0.0-6.0); HEMATOCRIT 25.3 % (34.2-44.1); HEMOGLOBIN 7.1 g/dL (12.0-16.0); LYMPHOCYTES # (AUTO) 1.8 (1.0-3.2); LYMPHOCYTES % 27.6 % (18.0-39.1); MEAN CORPUSCULAR HEMOGLOBIN 23.4 pg (28-32); MEAN CORPUSCULAR HGB CONC 28.1 g/dL (31-35); MEAN CORPUSCULAR VOLUME 83.5 fL (81-99); MONOCYTES # (AUTO) 0.5 (0.2-0.8); MONOCYTES % 6.9 % (4.4-11.3); NEUTROPHILS # (AUTO) 4.1 (2.1-6.9); NEUTROPHILS % 61.9 % (38.7-80.0); PLATELET COUNT 341 x10e3/uL (140-360); RED BLOOD COUNT 3.03 x10e6/uL (3.6-5.1); RED CELL DISTRIBUTION WIDTH 17.3 % (11.7-14.4)
[2020-03-27 07:39] LABS: ANION GAP 13.5 mmol/L (8-16); BLOOD UREA NITROGEN 18 mg/dL (7-26); BUN/CREATININE RATIO 22 (6-25); CALCIUM 8.2 mg/dL (8.4-10.2); CARBON DIOXIDE 23 mmol/L (22-29); CHLORIDE 110 mmol/L (98-107); CREATININE, SERUM 0.82 mg/dL (0.57-1.11); EST GLOMERULAR FILTRATION RATE > 60 ML/MIN (60-); GLUCOSE 99 mg/dL (74-118); POTASSIUM 4.5 mmol/L (3.5-5.1); SODIUM 142 mmol/L (136-145)
[2020-03-27 07:47] LABS: CREATINE KINASE 47 IU/L (29-168)
[2020-03-27 08:15] LABS: FERRITIN 7.38 ng/mL (4.63-204.00); THYROID STIMULATING HORMONE 2.446 uIU/mL (0.350-4.940)
[2020-03-27 09:50] LABS: ANISOCYTOSIS SLIGHT; PLATELET ESTIMATE ADEQUATE; PLATELET MORPHOLOGY COMMENT NORMAL; POLYCHROMASIA FEW
[2020-03-27 09:53] LABS: HYPOCHROMASIA MODERATE; RBC MORPHOLOGY COMMENT ABNORMAL
[2020-03-27] MEDS: INSULIN REGULAR, HUMAN 100 UNIT/1 ML 3ML VIAL SQ SCH ×4 (10:00→20:56)
[2020-03-27] MEDS: SUCRALFATE 1 GM TAB PO SCH ×2 (10:39→18:06)
[2020-03-27] MEDS: PANTOPRAZOLE 40 MG 10ML VIAL IV SCH ×2 (10:39→18:05)
[2020-03-27] MEDS: DICYCLOMINE HCL 20 MG TAB PO SCH ×3 (10:39→20:56)
[2020-03-27] MEDS: GLIMEPIRIDE 2 MG TAB PO SCH (10:39)
[2020-03-27] MEDS: GABAPENTIN 100 MG CAP PO SCH ×3 (10:39→20:56)
[2020-03-27] MEDS: LOSARTAN POTASSIUM 100 MG TAB PO SCH (10:45)
[2020-03-27] MEDS: METOPROLOL SUCCINATE 50 MG TAB XL PO SCH (10:45)
[2020-03-27 15:30] LABS: CREATINE KINASE MB 1.2 ng/mL (0-5.0)
[2020-03-27] MEDS: ATORVASTATIN 20 MG TAB PO SCH (20:56)
[2020-03-28] VITALS (8 sets, daily range): BP systolic 115–165; BP diastolic 53–99
[2020-03-28 06:19] LABS: BASOPHILS % 0.3 % (0.0-1.0); EOSINOPHILS # (AUTO) 0.2 (0.0-0.4); EOSINOPHILS % 3.7 % (0.0-6.0); HEMATOCRIT 26.5 % (34.2-44.1); HEMOGLOBIN 7.5 g/dL (12.0-16.0); LYMPHOCYTES % 31.4 % (18.0-39.1); MEAN CORPUSCULAR HEMOGLOBIN 23.7 pg (28-32); MEAN CORPUSCULAR HGB CONC 28.3 g/dL (31-35); MEAN CORPUSCULAR VOLUME 83.6 fL (81-99); MONOCYTES # (AUTO) 0.4 (0.2-0.8); MONOCYTES % 6.2 % (4.4-11.3); NEUTROPHILS # (AUTO) 3.7 (2.1-6.9); NEUTROPHILS % 57.9 % (38.7-80.0); PLATELET COUNT 311 x10e3/uL (140-360); RED BLOOD COUNT 3.17 x10e6/uL (3.6-5.1); RED CELL DISTRIBUTION WIDTH 17.1 % (11.7-14.4)
[2020-03-28 06:47] LABS: ALANINE AMINOTRANSFERASE 37 IU/L (0-55); ALBUMIN 3.3 g/dL (3.5-5.0); ALBUMIN/GLOBULIN RATIO 1.2 (0.8-2.0); ALKALINE PHOSPHATASE 58 IU/L (40-150); ANION GAP 12.2 mmol/L (8-16); BLOOD UREA NITROGEN 17 mg/dL (7-26); BUN/CREATININE RATIO 20 (6-25); CALCIUM 8.1 mg/dL (8.4-10.2); CARBON DIOXIDE 24 mmol/L (22-29); CHLORIDE 109 mmol/L (98-107); CREATININE, SERUM 0.84 mg/dL (0.57-1.11); EST GLOMERULAR FILTRATION RATE > 60 ML/MIN (60-); GLUCOSE 117 mg/dL (74-118); POTASSIUM 4.2 mmol/L (3.5-5.1); SODIUM 141 mmol/L (136-145)
[2020-03-28] MEDS: INSULIN REGULAR, HUMAN 100 UNIT/1 ML 3ML VIAL SQ SCH ×5 (07:30→20:50)
[2020-03-28] MEDS ORDERED: SIMETHICONE 40 MG/0.6 ML BTL ONE (07:36)
[2020-03-28 07:46] LABS: ANISOCYTOSIS SLIGHT; OVALOCYTES FEW; PLATELET ESTIMATE ADEQUATE; PLATELET MORPHOLOGY COMMENT NORMAL; POLYCHROMASIA FEW
[2020-03-28 07:47] LABS: RBC MORPHOLOGY COMMENT ABNORMAL
[2020-03-28] MEDS: PANTOPRAZOLE 40 MG 10ML VIAL IV SCH ×2 (09:00→16:06)
[2020-03-28] MEDS: LOSARTAN POTASSIUM 100 MG TAB PO SCH (11:00)
[2020-03-28] MEDS: GABAPENTIN 100 MG CAP PO SCH ×3 (11:00→20:45)
[2020-03-28] MEDS: SUCRALFATE 1 GM TAB PO SCH ×2 (11:00→16:08)
[2020-03-28] MEDS: GLIMEPIRIDE 2 MG TAB PO SCH (11:00)
[2020-03-28] MEDS: METOPROLOL SUCCINATE 50 MG TAB XL PO SCH (11:00)
[2020-03-28] MEDS: DICYCLOMINE HCL 20 MG TAB PO SCH ×3 (11:00→16:08)
[2020-03-28] MEDS: IRON SUCROSE 100 MG in SODIUM CHLORIDE 0.9% 100 ML 100 ML IV SCH (11:53)
[2020-03-28] MEDS ORDERED: ACETAMINOPHEN 325 MG TAB PO PRN (16:30)
[2020-03-28] MEDS ORDERED: CEFTRIAXONE SOD 1 GM/NS 50 ML 50 ML IV ONE (16:45)
[2020-03-28] MEDS ORDERED: GLUCAGON FOR INJ 1 MG VIAL ONE (17:20)
[2020-03-28] MEDS ORDERED: METOCLOPRAMIDE HCL 10 MG/2ML VIAL ONE (17:20)
[2020-03-28] MEDS ORDERED: LIDOCAINE HCL 2% LOCAL INJ 5 ML SDV VIAL INJ ONE (17:20)
[2020-03-28] MEDS ORDERED: PROPOFOL IV EMULSION 10 MG/ML 20 ML VIAL ONE (17:20)
[2020-03-28] MEDS ORDERED: FENTANYL CITRATE/PF 100MCG/2 ML INJ ONE (17:20)
[2020-03-28] MEDS ORDERED: MIDAZOLAM HCL 2 MG/2 ML VIAL ONE (17:20)
[2020-03-28] MEDS: ATORVASTATIN 20 MG TAB PO SCH (20:45)
[2020-03-29] VITALS (7 sets, daily range): BP systolic 109–146; BP diastolic 44–61
[2020-03-29] MEDS: INSULIN REGULAR, HUMAN 100 UNIT/1 ML 3ML VIAL SQ SCH ×3 (07:30→15:43)
[2020-03-29] MEDS: LOSARTAN POTASSIUM 100 MG TAB PO SCH (09:00)
[2020-03-29] MEDS: PANTOPRAZOLE 40 MG 10ML VIAL IV SCH ×2 (09:00→16:02)
[2020-03-29] MEDS: METOPROLOL SUCCINATE 50 MG TAB XL PO SCH (09:22)
[2020-03-29] MEDS: GABAPENTIN 100 MG CAP PO SCH ×2 (09:22→15:43)
[2020-03-29] MEDS: SUCRALFATE 1 GM TAB PO SCH ×2 (09:22→16:02)
[2020-03-29] MEDS: IRON SUCROSE 100 MG in SODIUM CHLORIDE 0.9% 100 ML 100 ML IV SCH (09:22)
[2020-03-29] MEDS: GLIMEPIRIDE 2 MG TAB PO SCH (09:22)
[2020-03-29] MEDS: DICYCLOMINE HCL 20 MG TAB PO SCH ×2 (09:22→15:43)
[2020-03-29] MEDS ORDERED: OMEPRAZOLE40 MG PO (19:42)
== END 2020-03-29 20:43 | disposition home or self-care (01) | DRG 378 ==
LOC: ER 15:03 → ERHOLD 16:44 → MED/SURG3 18:35 → OBSVTOIN 03-29 08:21
PROVIDERS: ADMIT Internal Medicine; ATTEND Internal Medicine
PROC: 30233N1 Transfusion of Nonautologous Red Blood Cells into Peripheral Vein, Percutaneous Approach (ICD-10-PCS; principal; 2020-03-26)
PROC: 0DJ08ZZ Inspection of Upper Intestinal Tract, Via Natural or Artificial Opening Endoscopic (ICD-10-PCS; 2020-03-28)
PROC: 0DJD8ZZ Inspection of Lower Intestinal Tract, Via Natural or Artificial Opening Endoscopic (ICD-10-PCS; 2020-03-28)
DX: K29.71 Gastritis, unspecified, with bleeding (principal); D62 Acute posthemorrhagic anemia; E11.9 Type 2 diabetes mellitus without complications; E78.5 Hyperlipidemia, unspecified; K20.90 Esophagitis, unspecified without bleeding; I10 Essential (primary) hypertension; Z87.11 Personal history of peptic ulcer disease; Z20.822 Contact with and (suspected) exposure to COVID-19
CPT/HCPCS: 36415; 43235; 71045; 74250; 80048; 80053; 82270; 82550; 82553; 82607; 82728; 82948; 83540; 84443; 84466; 84484; 85025; 86850; 86900; 86920; 87040; 87086; 96372; 99284; G0378; J0696; J1610; J1756; J2001; J2250; J2765; J3010; J7050; P9016; U0002

== ENCOUNTER 2020-05-03 10:41 | Observation (INO) | payer MEDICARE, OTHER ==
[~2020-05-03] VITALS: Ht 317.5 cm; Wt 81.6 kg
[~2020-05-03 10:41] MED LIST changes: +DICYCLOMINE HCL20 MG PO; +FERROUS SULFAT325 MG PO; +METOPROLOL SUCC50 MG PO; +POTASSIUM99 M1; +SUCRALFATE1 GM PO
[2020-05-03 11:20] LABS: BASOPHILS % 0.3 % (0.0-1.0); EOSINOPHILS # (AUTO) 0.3 (0.0-0.4); EOSINOPHILS % 4.9 % (0.0-6.0); LYMPHOCYTES # (AUTO) 1.2 (1.0-3.2); LYMPHOCYTES % 18.9 % (18.0-39.1); MEAN CORPUSCULAR HEMOGLOBIN 24.9 pg (28-32); MEAN CORPUSCULAR HGB CONC 28.1 g/dL (31-35); MEAN CORPUSCULAR VOLUME 88.5 fL (81-99); MONOCYTES # (AUTO) 0.3 (0.2-0.8); MONOCYTES % 5.2 % (4.4-11.3); NEUTROPHILS # (AUTO) 4.6 (2.1-6.9); NEUTROPHILS % 69.8 % (38.7-80.0); PLATELET COUNT 282 x10e3/uL (140-360); RED BLOOD COUNT 2.09 x10e6/uL (3.6-5.1)
[2020-05-03 11:22] LABS: HEMATOCRIT 18.5 % (34.2-44.1); HEMOGLOBIN 5.2 g/dL (12.0-16.0)
[2020-05-03 11:38] LABS: ALBUMIN 3.8 g/dL (3.5-5.0); ALBUMIN/GLOBULIN RATIO 1.4 (0.8-2.0); ANION GAP 22.5 mmol/L (8-16); CALCIUM 8.9 mg/dL (8.4-10.2); CREATININE, SERUM 1.05 mg/dL (0.57-1.11); POTASSIUM 3.5 mmol/L (3.5-5.1)
[2020-05-03 11:47] LABS: CREATINE KINASE MB 1.4 ng/mL (0-5.0)
[2020-05-03] MEDS ORDERED: SODIUM CHLORIDE 0.9% 250ML 250 ML ONE ×2 (12:06→21:08)
[2020-05-03] MEDS: SODIUM CHLORIDE 0.9% 250ML 250 ML IV ONE ×2 (13:45→14:02)
[2020-05-03 14:00] VITALS: BP 140/52
[2020-05-03] MEDS ORDERED: SUCRALFATE1 GM PO (16:55)
[2020-05-03] MEDS ORDERED: ASPIRIN EC81 MG PO (16:55)
[2020-05-03] MEDS ORDERED: FAMOTIDINE20 MG PO (16:55)
[2020-05-03] MEDS ORDERED: PROTONIX20 MG PO (16:55)
[2020-05-03 19:08] LABS: CREATINE KINASE MB 1.5 ng/mL (0-5.0)
[2020-05-03 20:00] VITALS: BP 139/58
[2020-05-03] MEDS ORDERED: ACETAMINOPHEN 325 MG TAB PO PRN (21:00)
[2020-05-03] MEDS ORDERED: ATORVASTATIN 20 MG TAB PO SCH (21:00)
[2020-05-03] MEDS ORDERED: ONDANSETRON HCL INJ 2MG/ML 2ML 2 MG/ML VIAL IV PRN (21:00)
[2020-05-03] MEDS: GABAPENTIN 100 MG CAP PO SCH (21:58)
[2020-05-03] MEDS: FERROUS SULFATE 325 MG TAB PO SCH (21:58)
[2020-05-03] MEDS: DICYCLOMINE HCL 20 MG TAB PO SCH (21:58)
[2020-05-04] VITALS: BP 130/51
[2020-05-04 00:26] VITALS: BP 139/58
[2020-05-04] MEDS ORDERED: SODIUM CHLORIDE 0.9% 250ML 250 ML IV ONE (01:30)
[2020-05-04 04:00] VITALS: BP 133/89
[2020-05-04 05:52] LABS: BASOPHILS % 0.4 % (0.0-1.0); EOSINOPHILS # (AUTO) 0.4 (0.0-0.4); EOSINOPHILS % 5.6 % (0.0-6.0); HEMATOCRIT 26.2 % (34.2-44.1); HEMOGLOBIN 8.3 g/dL (12.0-16.0); LYMPHOCYTES # (AUTO) 2.3 (1.0-3.2); MEAN CORPUSCULAR HEMOGLOBIN 27.8 pg (28-32); MEAN CORPUSCULAR HGB CONC 31.7 g/dL (31-35); MEAN CORPUSCULAR VOLUME 87.6 fL (81-99); MONOCYTES # (AUTO) 0.6 (0.2-0.8); MONOCYTES % 8.2 % (4.4-11.3); NEUTROPHILS # (AUTO) 3.5 (2.1-6.9); NEUTROPHILS % 52.1 % (38.7-80.0); PLATELET COUNT 221 x10e3/uL (140-360); RED BLOOD COUNT 2.99 x10e6/uL (3.6-5.1); RED CELL DISTRIBUTION WIDTH 16.1 % (11.7-14.4)
[2020-05-04 06:09] LABS: ALANINE AMINOTRANSFERASE 25 IU/L (0-55); ALBUMIN 3.3 g/dL (3.5-5.0); ALBUMIN/GLOBULIN RATIO 1.5 (0.8-2.0); ALKALINE PHOSPHATASE 42 IU/L (40-150); ANION GAP 12.7 mmol/L (8-16); BLOOD UREA NITROGEN 17 mg/dL (7-26); BUN/CREATININE RATIO 21 (6-25); CALCIUM 8.3 mg/dL (8.4-10.2); CARBON DIOXIDE 26 mmol/L (22-29); CHLORIDE 105 mmol/L (98-107); CREATININE, SERUM 0.81 mg/dL (0.57-1.11); EST GLOMERULAR FILTRATION RATE > 60 ML/MIN (60-); GLUCOSE 141 mg/dL (74-118); POTASSIUM 3.7 mmol/L (3.5-5.1); SODIUM 140 mmol/L (136-145)
[2020-05-04 06:26] LABS: CREATINE KINASE MB 0.9 ng/mL (0-5.0)
[2020-05-04 07:56] VITALS: BP 141/70
[2020-05-04] MEDS ORDERED: METFORMIN HCL 500 MG TAB PO SCH (08:00)
[2020-05-04] MEDS: DICYCLOMINE HCL 20 MG TAB PO SCH (08:47)
[2020-05-04] MEDS: FERROUS SULFATE 325 MG TAB PO SCH (08:48)
[2020-05-04] MEDS: GABAPENTIN 100 MG CAP PO SCH (08:48)
[2020-05-04 08:49] VITALS: BP 141/70
[2020-05-04] MEDS ORDERED: METOPROLOL SUCCINATE 50 MG TAB XL PO SCH (09:00)
[2020-05-04] MEDS ORDERED: LOSARTAN POTASSIUM 100 MG TAB PO SCH (09:00)
[2020-05-04] MEDS ORDERED: SUCRALFATE 1 GM TAB PO SCH (09:00)
[2020-05-04] MEDS ORDERED: FAMOTIDINE 20 MG TAB PO SCH (09:00)
[2020-05-04] MEDS ORDERED: PANTOPRAZOLE SOD 40 MG TABEC PO SCH (09:00)
[2020-05-04] MEDS ORDERED: GLIMEPIRIDE 2 MG TAB PO SCH (09:00)
== END 2020-05-04 11:10 | disposition home or self-care (01) ==
LOC: ER 10:50 → ERHOLD 12:06 → INTOOBSV 12:06 → MED/SURG2 12:34
PROVIDERS: ADMIT Internal Medicine; ATTEND Internal Medicine
DX: K92.2 Gastrointestinal hemorrhage, unspecified (principal); R07.9 Chest pain, unspecified; R94.31 Abnormal electrocardiogram [ECG] [EKG]; E11.9 Type 2 diabetes mellitus without complications; I10 Essential (primary) hypertension; E78.5 Hyperlipidemia, unspecified; Z87.11 Personal history of peptic ulcer disease; D62 Acute posthemorrhagic anemia; Z20.822 Contact with and (suspected) exposure to COVID-19
CPT/HCPCS: 36415 ×2; 71045; 80053 ×2; 82550 ×2; 82553 ×2; 82948 ×2; 84484 ×2; 85025 ×2; 86850; 86900; 86920; 93005; 93306; 99284; G0378 ×2; J7050 ×2; P9016 ×2; S0164; U0002

== ENCOUNTER → 2021-04-28 | Outpatient (CLI) | payer OTHER ==
[~2021-04-28] MED LIST changes: +ASPIRIN EC81 MG PO; +FAMOTIDINE20 MG PO; +PROTONIX20 MG PO
== END ==
LOC: MAMMO 12:51
PROVIDERS: ATTEND Internal Medicine
DX: Z12.31 Encounter for screening mammogram for malignant neoplasm of breast (principal)
CPT/HCPCS: 77067

== ENCOUNTER 2021-08-08 11:59 | Inpatient (IN) | payer OTHER ==
[~2021-08-08] VITALS: Ht 154.9 cm; Wt 71.4 kg
[2021-08-08 13:17] LABS: BASOPHILS % 0.4 % (0.0-1.0); EOSINOPHILS # (AUTO) 0.2 (0.0-0.4); EOSINOPHILS % 2.3 % (0.0-6.0); HEMATOCRIT 24.7 % (34.2-44.1); INR 0.96; LYMPHOCYTES # (AUTO) 1.9 (1.0-3.2); LYMPHOCYTES % 23.7 % (18.0-39.1); MEAN CORPUSCULAR HEMOGLOBIN 22.4 pg (28-32); MEAN CORPUSCULAR HGB CONC 27.9 g/dL (31-35); MEAN CORPUSCULAR VOLUME 80.2 fL (81-99); MONOCYTES # (AUTO) 0.4 (0.2-0.8); MONOCYTES % 5.2 % (4.4-11.3); NEUTROPHILS # (AUTO) 5.5 (2.1-6.9); NEUTROPHILS % 67.9 % (38.7-80.0); PLATELET COUNT 479 x10e3/uL (140-360); PROTHROMBIN TIME 13.7 seconds (11.9-14.5); RED BLOOD COUNT 3.08 x10e6/uL (3.6-5.1)
[2021-08-08 13:22] LABS: PARTIAL THROMBOPLASTIN TIME 34.6 seconds (23.8-35.5)
[2021-08-08 13:24] LABS: HEMOGLOBIN 6.9 g/dL (12.0-16.0)
[2021-08-08 13:25] LABS: ALANINE AMINOTRANSFERASE 33 IU/L (0-55); ALBUMIN/GLOBULIN RATIO 1.1 (0.8-2.0); ALKALINE PHOSPHATASE 72 IU/L (40-150); ANION GAP 17.9 mmol/L (8-16); BLOOD UREA NITROGEN 26 mg/dL (7-26); BUN/CREATININE RATIO 20 (6-25); CALCIUM 9.4 mg/dL (8.4-10.2); CARBON DIOXIDE 21 mmol/L (22-29); CHLORIDE 102 mmol/L (98-107); CREATINE KINASE 32 IU/L (29-168); CREATININE, SERUM 1.33 mg/dL (0.57-1.11); EST GLOMERULAR FILTRATION RATE 40 ML/MIN (60-); GLUCOSE 209 mg/dL (74-118); POTASSIUM 3.9 mmol/L (3.5-5.1); SODIUM 137 mmol/L (136-145)
[2021-08-08] MEDS ORDERED: SODIUM CHLORIDE 0.9% 250ML 250 ML IV ONE ×2 (13:45→20:15)
[2021-08-08] MEDS ORDERED: ACETAMINOPHEN 325 MG TAB PO ONE (14:00)
[2021-08-08] MEDS ORDERED: SODIUM CHLORIDE 0.9% 1000ML 1,000 ML IV ONE (14:45)
[2021-08-08] MEDS: SODIUM CHLORIDE 0.9% 1000ML 1,000 ML IV SCH ×2 (15:45→20:20)
[2021-08-08 16:00] VITALS: BP 116/57
[2021-08-08] MEDS ORDERED: IOPAMIDOL 370 MG/ML 100 ML INFUS..BTL INJ ONE (17:22)
[2021-08-08 17:50] VITALS: BP 116/57
[2021-08-08] MEDS ORDERED: VITAMIN D250 MCG PO (18:17)
[2021-08-08] MEDS ORDERED: AMLODIPINE BESYL5 MG PO (18:17)
[2021-08-08] MEDS ORDERED: NAPROXEN250 MG PO (18:17)
[2021-08-08 18:37] VITALS: BP 116/57
[2021-08-08 19:43] LABS: HEMATOCRIT 20.3 % (34.2-44.1); HEMOGLOBIN 5.8 g/dL (12.0-16.0)
[2021-08-08 20:00] VITALS: BP 114/51
[2021-08-08 20:41] VITALS: BP 116/57
[2021-08-09] VITALS (8 sets, daily range): BP systolic 110–139; BP diastolic 56–92
[2021-08-09 00:57] LABS: HEMATOCRIT 19.7 % (34.2-44.1); HEMOGLOBIN 5.6 g/dL (12.0-16.0)
[2021-08-09 01:09] LABS: FERRITIN 42.46 ng/mL (4.63-204.00)
[2021-08-09] MEDS ORDERED: ALBUTEROL/IPRATROPIUM 3 ML NEB NEB PRN (01:30)
[2021-08-09] MEDS ORDERED: ONDANSETRON HCL INJ 2MG/ML 2ML 2 MG/ML VIAL IV PRN (01:30)
[2021-08-09] MEDS ORDERED: DIPHENHYDRAMINE HCL 25 MG CAP PO PRN (01:30)
[2021-08-09] MEDS ORDERED: MELATONIN 5 MG TABLET PO PRN (01:30)
[2021-08-09] MEDS ORDERED: HYDRALAZINE HCL 20 MG/ML VIAL IV PRN (01:30)
[2021-08-09] MEDS ORDERED: SIMETHICONE 80 MG CHEW PO PRN (01:30)
[2021-08-09] MEDS ORDERED: DOCUSATE SODIUM 100 MG CAP PO PRN (01:30)
[2021-08-09] MEDS ORDERED: ACETAMINOPHEN 325 MG TAB PO PRN (01:30)
[2021-08-09] MEDS ORDERED: POTASSIUM CHLORIDE 20 MEQ TAB CR PO PRN (01:30)
[2021-08-09] MEDS ORDERED: BENZONATATE 100 MG CAP PO PRN (01:30)
[2021-08-09] MEDS ORDERED: LIDOCAINE 4% PATCH TP PRN (01:30)
[2021-08-09] MEDS ORDERED: CHLORASEPTIC SPRAY 177 ML BTL MM PRN (01:30)
[2021-08-09] MEDS: DEXTROSE 5%/0.9% SOD CHL 1,000 ML IV SCH ×2 (01:40→14:50)
[2021-08-09] MEDS ORDERED: SODIUM CHLORIDE 0.9% 250ML 250 ML ONE ×3 (03:05→15:13)
[2021-08-09] MEDS: IRON SUCROSE 100 MG in SODIUM CHLORIDE 0.9% 100 ML 100 ML IV SCH (09:51)
[2021-08-09 15:42] LABS: BASOPHILS % 0.5 % (0.0-1.0); EOSINOPHILS # (AUTO) 0.1 (0.0-0.4); EOSINOPHILS % 1.7 % (0.0-6.0); HEMATOCRIT 30.7 % (34.2-44.1); HEMOGLOBIN 9.4 g/dL (12.0-16.0); LYMPHOCYTES # (AUTO) 2.2 (1.0-3.2); LYMPHOCYTES % 33.3 % (18.0-39.1); MEAN CORPUSCULAR HEMOGLOBIN 25.5 pg (28-32); MEAN CORPUSCULAR HGB CONC 30.6 g/dL (31-35); MEAN CORPUSCULAR VOLUME 83.2 fL (81-99); MONOCYTES # (AUTO) 0.5 (0.2-0.8); MONOCYTES % 7.3 % (4.4-11.3); NEUTROPHILS # (AUTO) 3.7 (2.1-6.9); NEUTROPHILS % 56.6 % (38.7-80.0); PLATELET COUNT 325 x10e3/uL (140-360); RED BLOOD COUNT 3.69 x10e6/uL (3.6-5.1); RED CELL DISTRIBUTION WIDTH 17.7 % (11.7-14.4)
[2021-08-09 15:59] LABS: ANION GAP 13.9 mmol/L (8-16); CALCIUM 8.8 mg/dL (8.4-10.2); CREATININE, SERUM 0.83 mg/dL (0.57-1.11); POTASSIUM 3.9 mmol/L (3.5-5.1)
[2021-08-09 16:19] LABS: FERRITIN 16.7 ng/mL (4.63-204.00)
[2021-08-09] MEDS: ATORVASTATIN 20 MG TAB PO SCH (20:46)
[2021-08-09 21:18] LABS: HEMATOCRIT 32.4 % (34.2-44.1); HEMOGLOBIN 9.9 g/dL (12.0-16.0)
[2021-08-10] VITALS (8 sets, daily range): BP systolic 135–146; BP diastolic 64–74
[2021-08-10 00:40] LABS: HEMATOCRIT 31.2 % (34.2-44.1); HEMOGLOBIN 9.7 g/dL (12.0-16.0)
[2021-08-10] MEDS: DEXTROSE 5%/0.9% SOD CHL 1,000 ML IV SCH ×2 (04:05→18:48)
[2021-08-10 05:58] LABS: BASOPHILS % 0.5 % (0.0-1.0); EOSINOPHILS # (AUTO) 0.2 (0.0-0.4); HEMATOCRIT 31.5 % (34.2-44.1); HEMOGLOBIN 9.5 g/dL (12.0-16.0); LYMPHOCYTES # (AUTO) 2.1 (1.0-3.2); LYMPHOCYTES % 31.1 % (18.0-39.1); MEAN CORPUSCULAR HEMOGLOBIN 25.2 pg (28-32); MEAN CORPUSCULAR HGB CONC 30.2 g/dL (31-35); MEAN CORPUSCULAR VOLUME 83.6 fL (81-99); MONOCYTES # (AUTO) 0.5 (0.2-0.8); MONOCYTES % 6.8 % (4.4-11.3); NEUTROPHILS # (AUTO) 3.8 (2.1-6.9); NEUTROPHILS % 58.1 % (38.7-80.0); PLATELET COUNT 304 x10e3/uL (140-360); RED BLOOD COUNT 3.77 x10e6/uL (3.6-5.1); RED CELL DISTRIBUTION WIDTH 17.5 % (11.7-14.4)
[2021-08-10 06:26] LABS: ANION GAP 13.7 mmol/L (8-16); CALCIUM 8.3 mg/dL (8.4-10.2); CREATININE, SERUM 0.78 mg/dL (0.57-1.11); POTASSIUM 3.7 mmol/L (3.5-5.1)
[2021-08-10] MEDS: CYANOCOBALAMIN INJ 1,000 MCG/ML VIAL IM SCH (09:27)
[2021-08-10] MEDS: IRON SUCROSE 100 MG in SODIUM CHLORIDE 0.9% 100 ML 100 ML IV SCH (09:27)
[2021-08-10] MEDS: AMLODIPINE BESYLATE 5 MG TAB PO SCH (09:28)
[2021-08-10] MEDS: LOSARTAN POTASSIUM 100 MG TAB PO SCH (09:28)
[2021-08-10 12:26] LABS: HEMOGLOBIN 10.4 g/dL (12.0-16.0)
[2021-08-10] MEDS ORDERED: DEXTROSE 50% SYRINGE 50 ML IV PRN (15:00)
[2021-08-10] MEDS: INSULIN LISPRO 100 UNIT/1 ML 3ML VIAL SQ SCH ×2 (16:45→21:00)
[2021-08-10 18:31] LABS: HEMOGLOBIN 9.4 g/dL (12.0-16.0)
[2021-08-10] MEDS: ATORVASTATIN 20 MG TAB PO SCH (20:50)
[2021-08-11] VITALS (7 sets, daily range): BP systolic 126–164; BP diastolic 54–84
[2021-08-11 05:26] LABS: BASOPHILS % 0.6 % (0.0-1.0); EOSINOPHILS # (AUTO) 0.2 (0.0-0.4); EOSINOPHILS % 2.9 % (0.0-6.0); HEMATOCRIT 32.2 % (34.2-44.1); HEMOGLOBIN 9.7 g/dL (12.0-16.0); LYMPHOCYTES # (AUTO) 1.8 (1.0-3.2); LYMPHOCYTES % 25.2 % (18.0-39.1); MEAN CORPUSCULAR HEMOGLOBIN 25.6 pg (28-32); MEAN CORPUSCULAR HGB CONC 30.1 g/dL (31-35); MONOCYTES # (AUTO) 0.4 (0.2-0.8); MONOCYTES % 5.9 % (4.4-11.3); NEUTROPHILS # (AUTO) 4.5 (2.1-6.9); NEUTROPHILS % 64.5 % (38.7-80.0); PLATELET COUNT 164 x10e3/uL (140-360); RED BLOOD COUNT 3.79 x10e6/uL (3.6-5.1); RED CELL DISTRIBUTION WIDTH 17.5 % (11.7-14.4)
[2021-08-11 05:46] LABS: CALCIUM 8.6 mg/dL (8.4-10.2); CREATININE, SERUM 0.82 mg/dL (0.57-1.11)
[2021-08-11] MEDS: INSULIN LISPRO 100 UNIT/1 ML 3ML VIAL SQ SCH ×4 (07:29→21:26)
[2021-08-11] MEDS: AMLODIPINE BESYLATE 5 MG TAB PO SCH (09:00)
[2021-08-11] MEDS: LOSARTAN POTASSIUM 100 MG TAB PO SCH (09:00)
[2021-08-11] MEDS: IRON SUCROSE 100 MG in SODIUM CHLORIDE 0.9% 100 ML 100 ML IV SCH (09:39)
[2021-08-11] MEDS: CYANOCOBALAMIN INJ 1,000 MCG/ML VIAL IM SCH (09:39)
[2021-08-11] MEDS ORDERED: MIDAZOLAM HCL 2 MG/2 ML VIAL ONE (12:59)
[2021-08-11] MEDS ORDERED: LIDOCAINE HCL 2% LOCAL INJ 5 ML SDV VIAL INJ ONE (13:49)
[2021-08-11] MEDS ORDERED: PROPOFOL IV EMULSION 10 MG/ML 20 ML VIAL ONE (13:49)
[2021-08-11 16:07] LABS: HEMATOCRIT 29.7 % (34.2-44.1); HEMOGLOBIN 8.9 g/dL (12.0-16.0)
[2021-08-11] MEDS: DEXTROSE 5%/0.9% SOD CHL 1,000 ML IV SCH (16:10)
[2021-08-11] MEDS: SUCRALFATE 1 GM TAB PO SCH ×2 (16:10→21:25)
[2021-08-11 19:21] LABS: HEMATOCRIT 31.2 % (34.2-44.1); HEMOGLOBIN 9.4 g/dL (12.0-16.0)
[2021-08-11] MEDS: ATORVASTATIN 20 MG TAB PO SCH (21:25)
[2021-08-12] VITALS: BP 134/58
[2021-08-12 04:00] VITALS: BP 161/62
[2021-08-12 07:44] VITALS: BP 141/61
[2021-08-12 07:55] VITALS: BP 141/61
[2021-08-12] MEDS: INSULIN LISPRO 100 UNIT/1 ML 3ML VIAL SQ SCH (08:30)
[2021-08-12] MEDS: SUCRALFATE 1 GM TAB PO SCH (10:00)
[2021-08-12] MEDS: LOSARTAN POTASSIUM 100 MG TAB PO SCH (10:00)
[2021-08-12] MEDS: CYANOCOBALAMIN INJ 1,000 MCG/ML VIAL IM SCH (10:00)
[2021-08-12] MEDS: AMLODIPINE BESYLATE 5 MG TAB PO SCH (10:00)
[2021-08-12] MEDS: IRON SUCROSE 100 MG in SODIUM CHLORIDE 0.9% 100 ML 100 ML IV SCH (10:00)
[2021-08-12 11:54] VITALS: BP 149/67
[2021-08-12] MEDS ORDERED: PANTOPRAZOLE SO40 MG PO (12:40)
[2021-08-12] MEDS ORDERED: CARAFATE1 GM PO (12:41)
[2021-08-12] MEDS ORDERED: ONDANSETRON HCL 4 MG ORAL DISINTEGRATING TAB PO PRN (13:15)
== END 2021-08-12 14:19 | disposition home or self-care (01) | DRG 368 ==
LOC: ER 13:04 → ERHOLD 15:45 → MED/SURG2 17:50
PROVIDERS: ADMIT Internal Medicine; ATTEND Internal Medicine
PROC: 30233N1 Transfusion of Nonautologous Red Blood Cells into Peripheral Vein, Percutaneous Approach (ICD-10-PCS; 2021-08-09)
PROC: 3E0G8GC Introduction of Other Therapeutic Substance into Upper GI, Via Natural or Artificial Opening Endoscopic (ICD-10-PCS; 2021-08-11)
PROC: 0D568ZZ Destruction of Stomach, Via Natural or Artificial Opening Endoscopic (ICD-10-PCS; principal; 2021-08-11 12:14)
PROC: 0DB78ZZ Excision of Stomach, Pylorus, Via Natural or Artificial Opening Endoscopic (ICD-10-PCS; 2021-08-11 12:14)
DX: K20.91 Esophagitis, unspecified with bleeding (principal); K31.811 Angiodysplasia of stomach and duodenum with bleeding; K29.71 Gastritis, unspecified, with bleeding; D62 Acute posthemorrhagic anemia; Z79.1 Long term (current) use of non-steroidal anti-inflammatories (NSAID); Z20.822 Contact with and (suspected) exposure to COVID-19; E11.9 Type 2 diabetes mellitus without complications; D50.9 Iron deficiency anemia, unspecified; I10 Essential (primary) hypertension; E53.8 Deficiency of other specified B group vitamins; Z79.4 Long term (current) use of insulin; R13.10 Dysphagia, unspecified
CPT/HCPCS: 36415; 43239; 43270; 74177; 78278; 80048; 80053; 82270; 82550; 82553; 82607; 82728; 82746; 82948; 83540; 84466; 84484; 85014; 85018; 85025; 85045; 85610; 85730; 86850; 86870; 86880; 86900; 86905; 86920; 86922; 88305; 88312; 88342; 93005; 94799; 96372; 99001; 99284; A9512; J1756; J2001; J2250; J3420; J7030; J7042; J7050; P9016; Q9967; U0002

== ENCOUNTER 2021-09-24 10:45 | Inpatient (IN) | payer OTHER ==
[~2021-09-24] VITALS: Ht 154.9 cm; Wt 71.2 kg
[~2021-09-24 10:45] MED LIST changes: +CARAFATE1 GM PO; +NAPROXEN250 MG PO; +PANTOPRAZOLE SO40 MG PO; +VITAMIN D250 MCG PO
[2021-09-24 11:10] LABS: BASOPHILS % 0.4 % (0.0-1.0); EOSINOPHILS # (AUTO) 0.2 (0.0-0.4); EOSINOPHILS % 1.8 % (0.0-6.0); HEMATOCRIT 23.7 % (34.2-44.1); LYMPHOCYTES # (AUTO) 2.1 (1.0-3.2); LYMPHOCYTES % 20.4 % (18.0-39.1); MEAN CORPUSCULAR HGB CONC 29.5 g/dL (31-35); MEAN CORPUSCULAR VOLUME 94.8 fL (81-99); MONOCYTES # (AUTO) 0.4 (0.2-0.8); MONOCYTES % 3.8 % (4.4-11.3); NEUTROPHILS # (AUTO) 7.3 (2.1-6.9); NEUTROPHILS % 71.9 % (38.7-80.0); PLATELET COUNT 274 x10e3/uL (140-360); RED CELL DISTRIBUTION WIDTH 21.7 % (11.7-14.4)
[2021-09-24 11:19] LABS: INR 1.03; PROTHROMBIN TIME 14.4 seconds (11.9-14.5)
[2021-09-24 11:20] LABS: PARTIAL THROMBOPLASTIN TIME 32.1 seconds (23.8-35.5)
[2021-09-24 11:28] LABS: ALBUMIN 3.7 g/dL (3.5-5.0); ALBUMIN/GLOBULIN RATIO 1.2 (0.8-2.0); ANION GAP 21.2 mmol/L (8-16); CALCIUM 9.1 mg/dL (8.4-10.2); CREATININE, SERUM 0.93 mg/dL (0.57-1.11); POTASSIUM 4.2 mmol/L (3.5-5.1)
[2021-09-24 11:36] LABS: CREATINE KINASE MB 1.4 ng/mL (0-5.0)
[2021-09-24] MEDS ORDERED: OCTREOTIDE ACETATE 0.05 MG/ML AMP IV STA (12:41)
[2021-09-24 12:46] LABS: HYPOCHROMASIA MODERATE; PLATELET ESTIMATE ADEQUATE; PLATELET MORPHOLOGY COMMENT NORMAL; POLYCHROMASIA FEW; RBC MORPHOLOGY COMMENT ABNORMAL
[2021-09-24 12:47] LABS: ANISOCYTOSIS MODERATE; OVALOCYTES FEW
[2021-09-24] MEDS: OCTREOTIDE ACETATE 500 MCG in SODIUM CHLORIDE 0.9% 250ML 250 ML IV SCH ×3 (13:02→23:48)
[2021-09-24] MEDS: SODIUM CHLORIDE 0.9% 1000ML 1,000 ML IV SCH ×2 (14:27→22:29)
[2021-09-24 18:27] LABS: BASOPHILS % 0.3 % (0.0-1.0); EOSINOPHILS # (AUTO) 0.2 (0.0-0.4); EOSINOPHILS % 1.8 % (0.0-6.0); LYMPHOCYTES # (AUTO) 2.6 (1.0-3.2); LYMPHOCYTES % 24.3 % (18.0-39.1); MEAN CORPUSCULAR HEMOGLOBIN 27.9 pg (28-32); MEAN CORPUSCULAR VOLUME 96.1 fL (81-99); MONOCYTES # (AUTO) 0.6 (0.2-0.8); MONOCYTES % 5.1 % (4.4-11.3); NEUTROPHILS # (AUTO) 7.3 (2.1-6.9); PLATELET COUNT 274 x10e3/uL (140-360); RED BLOOD COUNT 2.33 x10e6/uL (3.6-5.1); RED CELL DISTRIBUTION WIDTH 22.3 % (11.7-14.4)
[2021-09-24 18:38] LABS: HEMATOCRIT 22.4 % (34.2-44.1); HEMOGLOBIN 6.5 g/dL (12.0-16.0)
[2021-09-24 20:38] VITALS: BP 142/59
[2021-09-24 20:40] VITALS: BP 142/59
[2021-09-24 21:00] VITALS: BP 142/59
[2021-09-25] VITALS (7 sets, daily range): BP systolic 142–154; BP diastolic 50–72
[2021-09-25 00:04] LABS: FERRITIN 219.55 ng/mL (4.63-204.00)
[2021-09-25] MEDS ORDERED: BENZONATATE 100 MG CAP PO PRN (01:30)
[2021-09-25] MEDS ORDERED: ONDANSETRON HCL INJ 2MG/ML 2ML 2 MG/ML VIAL IV PRN (01:30)
[2021-09-25] MEDS ORDERED: DIPHENHYDRAMINE HCL 25 MG CAP PO PRN (01:30)
[2021-09-25] MEDS ORDERED: ACETAMINOPHEN 325 MG TAB PO PRN (01:30)
[2021-09-25] MEDS ORDERED: DEXTROSE 50% SYRINGE 50 ML IV PRN ×2 (01:30→11:15)
[2021-09-25] MEDS ORDERED: POTASSIUM CHLORIDE 20 MEQ TAB CR PO PRN (01:30)
[2021-09-25] MEDS ORDERED: DOCUSATE SODIUM 100 MG CAP PO PRN (01:30)
[2021-09-25] MEDS ORDERED: HYDRALAZINE HCL 20 MG/ML VIAL IV PRN (01:30)
[2021-09-25] MEDS ORDERED: LIDOCAINE 4% PATCH TP PRN (01:30)
[2021-09-25] MEDS ORDERED: SIMETHICONE 80 MG CHEW PO PRN (01:30)
[2021-09-25] MEDS ORDERED: MELATONIN 5 MG TABLET PO PRN (01:30)
[2021-09-25] MEDS ORDERED: ALBUTEROL/IPRATROPIUM 3 ML NEB NEB PRN (01:30)
[2021-09-25] MEDS: DEXTROSE 5%/0.9% SOD CHL 1,000 ML IV SCH ×2 (02:00→16:37)
[2021-09-25 07:16] LABS: BASOPHILS % 0.3 % (0.0-1.0); EOSINOPHILS # (AUTO) 0.2 (0.0-0.4); HEMATOCRIT 29.3 % (34.2-44.1); HEMOGLOBIN 9.3 g/dL (12.0-16.0); LYMPHOCYTES # (AUTO) 1.8 (1.0-3.2); LYMPHOCYTES % 19.9 % (18.0-39.1); MEAN CORPUSCULAR HEMOGLOBIN 28.4 pg (28-32); MEAN CORPUSCULAR HGB CONC 31.7 g/dL (31-35); MEAN CORPUSCULAR VOLUME 89.6 fL (81-99); MONOCYTES # (AUTO) 0.4 (0.2-0.8); MONOCYTES % 4.4 % (4.4-11.3); NEUTROPHILS # (AUTO) 6.4 (2.1-6.9); NEUTROPHILS % 71.9 % (38.7-80.0); PLATELET COUNT 215 x10e3/uL (140-360); RED BLOOD COUNT 3.27 x10e6/uL (3.6-5.1); RED CELL DISTRIBUTION WIDTH 18.8 % (11.7-14.4)
[2021-09-25] MEDS ORDERED: PANTOPRAZOLE SOD 40 MG TABEC PO SCH (07:30)
[2021-09-25 07:54] LABS: ALBUMIN 3.6 g/dL (3.5-5.0); ALBUMIN/GLOBULIN RATIO 1.6 (0.8-2.0); CALCIUM 8.5 mg/dL (8.4-10.2); CREATININE, SERUM 0.84 mg/dL (0.57-1.11)
[2021-09-25] MEDS: OCTREOTIDE ACETATE 500 MCG in SODIUM CHLORIDE 0.9% 250ML 250 ML IV SCH ×2 (09:13→22:00)
[2021-09-25] MEDS: INSULIN LISPRO 100 UNIT/1 ML 3ML VIAL SQ SCH ×3 (11:30→21:00)
[2021-09-25 11:59] LABS: BASOPHILS % 0.4 % (0.0-1.0); EOSINOPHILS # (AUTO) 0.2 (0.0-0.4); EOSINOPHILS % 2.2 % (0.0-6.0); HEMATOCRIT 29.4 % (34.2-44.1); HEMOGLOBIN 9.3 g/dL (12.0-16.0); LYMPHOCYTES # (AUTO) 1.5 (1.0-3.2); LYMPHOCYTES % 19.6 % (18.0-39.1); MEAN CORPUSCULAR HEMOGLOBIN 28.3 pg (28-32); MEAN CORPUSCULAR HGB CONC 31.6 g/dL (31-35); MEAN CORPUSCULAR VOLUME 89.4 fL (81-99); MONOCYTES # (AUTO) 0.3 (0.2-0.8); MONOCYTES % 4.5 % (4.4-11.3); NEUTROPHILS # (AUTO) 5.3 (2.1-6.9); NEUTROPHILS % 72.1 % (38.7-80.0); PLATELET COUNT 208 x10e3/uL (140-360); RED BLOOD COUNT 3.29 x10e6/uL (3.6-5.1); RED CELL DISTRIBUTION WIDTH 18.8 % (11.7-14.4)
[2021-09-25] MEDS ORDERED: LIDOCAINE HCL 2% LOCAL INJ 5 ML SDV VIAL INJ ONE (12:35)
[2021-09-25] MEDS ORDERED: PROPOFOL IV EMULSION 10 MG/ML 20 ML VIAL ONE (12:35)
[2021-09-25 19:02] LABS: BASOPHILS % 0.3 % (0.0-1.0); EOSINOPHILS # (AUTO) 0.2 (0.0-0.4); EOSINOPHILS % 3.3 % (0.0-6.0); HEMATOCRIT 29.8 % (34.2-44.1); HEMOGLOBIN 9.3 g/dL (12.0-16.0); LYMPHOCYTES # (AUTO) 1.6 (1.0-3.2); MEAN CORPUSCULAR HEMOGLOBIN 28.4 pg (28-32); MEAN CORPUSCULAR HGB CONC 31.2 g/dL (31-35); MEAN CORPUSCULAR VOLUME 91.1 fL (81-99); MONOCYTES # (AUTO) 0.3 (0.2-0.8); MONOCYTES % 5.5 % (4.4-11.3); NEUTROPHILS # (AUTO) 3.8 (2.1-6.9); NEUTROPHILS % 63.6 % (38.7-80.0); PLATELET COUNT 208 x10e3/uL (140-360); RED BLOOD COUNT 3.27 x10e6/uL (3.6-5.1); RED CELL DISTRIBUTION WIDTH 18.9 % (11.7-14.4)
[2021-09-26] VITALS (8 sets, daily range): BP systolic 127–148; BP diastolic 54–68
[2021-09-26] MEDS: OCTREOTIDE ACETATE 500 MCG in SODIUM CHLORIDE 0.9% 250ML 250 ML IV SCH ×2 (05:30→16:23)
[2021-09-26 06:14] LABS: BASOPHILS % 0.2 % (0.0-1.0); EOSINOPHILS # (AUTO) 0.2 (0.0-0.4); EOSINOPHILS % 2.5 % (0.0-6.0); HEMATOCRIT 29.7 % (34.2-44.1); HEMOGLOBIN 9.3 g/dL (12.0-16.0); LYMPHOCYTES # (AUTO) 1.3 (1.0-3.2); MEAN CORPUSCULAR HEMOGLOBIN 28.2 pg (28-32); MEAN CORPUSCULAR HGB CONC 31.3 g/dL (31-35); MONOCYTES # (AUTO) 0.4 (0.2-0.8); MONOCYTES % 6.1 % (4.4-11.3); NEUTROPHILS # (AUTO) 4.2 (2.1-6.9); NEUTROPHILS % 69.4 % (38.7-80.0); PLATELET COUNT 220 x10e3/uL (140-360); RED CELL DISTRIBUTION WIDTH 19.1 % (11.7-14.4)
[2021-09-26 06:47] LABS: ANION GAP 15.7 mmol/L (8-16); CALCIUM 7.8 mg/dL (8.4-10.2); CREATININE, SERUM 0.75 mg/dL (0.57-1.11); POTASSIUM 3.7 mmol/L (3.5-5.1)
[2021-09-26] MEDS: INSULIN LISPRO 100 UNIT/1 ML 3ML VIAL SQ SCH ×4 (07:30→22:18)
[2021-09-26] MEDS: METOCLOPRAMIDE HCL 10 MG/2ML VIAL IV SCH ×4 (09:07→20:08)
[2021-09-26] MEDS ORDERED: GLUCAGON FOR INJ 1 MG VIAL ONE (12:20)
[2021-09-26] MEDS ORDERED: LIDOCAINE HCL 2% LOCAL INJ 5 ML SDV VIAL INJ ONE (12:20)
[2021-09-26] MEDS ORDERED: PROPOFOL IV EMULSION 10 MG/ML 20 ML VIAL ONE (12:20)
[2021-09-27 00:01] VITALS: BP 134/51
[2021-09-27] MEDS: OCTREOTIDE ACETATE 500 MCG in SODIUM CHLORIDE 0.9% 250ML 250 ML IV SCH ×2 (04:56→11:30)
[2021-09-27 05:08] VITALS: BP 134/67
[2021-09-27 08:17] VITALS: BP 138/61
[2021-09-27 08:23] VITALS: BP 138/61
[2021-09-27] MEDS: METOCLOPRAMIDE HCL 10 MG/2ML VIAL IV SCH ×2 (08:27→11:42)
[2021-09-27] MEDS: INSULIN LISPRO 100 UNIT/1 ML 3ML VIAL SQ SCH ×3 (08:46→16:01)
[2021-09-27 12:04] VITALS: BP 122/60
[2021-09-27 13:46] LABS: HEMATOCRIT 29.2 % (34.2-44.1)
[2021-09-27 15:57] VITALS: BP 115/68
== END 2021-09-27 17:14 | disposition home or self-care (01) | DRG 378 ==
LOC: ER 10:57 → ERHOLD 13:19 → MED/SURG3 19:31
PROVIDERS: ADMIT Internal Medicine; ATTEND Internal Medicine
PROC: 30233N1 Transfusion of Nonautologous Red Blood Cells into Peripheral Vein, Percutaneous Approach (ICD-10-PCS; 2021-09-24)
PROC: 0W3P8ZZ Control Bleeding in Gastrointestinal Tract, Via Natural or Artificial Opening Endoscopic (ICD-10-PCS; principal; 2021-09-25 15:18)
PROC: 0DJ08ZZ Inspection of Upper Intestinal Tract, Via Natural or Artificial Opening Endoscopic (ICD-10-PCS; 2021-09-26)
DX: K31.811 Angiodysplasia of stomach and duodenum with bleeding (principal); D62 Acute posthemorrhagic anemia; D50.0 Iron deficiency anemia secondary to blood loss (chronic); K31.84 Gastroparesis; E11.43 Type 2 diabetes mellitus with diabetic autonomic (poly)neuropathy; K20.90 Esophagitis, unspecified without bleeding; K29.70 Gastritis, unspecified, without bleeding; E78.5 Hyperlipidemia, unspecified; I10 Essential (primary) hypertension; Z88.5 Allergy status to narcotic agent; Z88.0 Allergy status to penicillin; Z86.010 Personal history of colon polyps; Z20.822 Contact with and (suspected) exposure to COVID-19; Z79.84 Long term (current) use of oral hypoglycemic drugs
CPT/HCPCS: 0223U; 36415; 43235; 43239; 43270; 71045; 80048; 80053; 82270; 82550; 82553; 82607; 82728; 82746; 82948; 83540; 84466; 84484; 85014; 85018; 85025; 85045; 85610; 85730; 86850; 86870; 86880; 86900; 86905; 86920; 86922; 94799; 99001; 99284; J1610; J2001; J2353; J2354; J2765; J7030; J7042; J7050; P9016

== ENCOUNTER → 2022-05-06 | Outpatient (CLI) | payer OTHER | LOC: MAMMO 10:29 | PROVIDERS: ATTEND Internal Medicine | DX: Z12.31 Encounter for screening mammogram for malignant neoplasm of breast (principal) | CPT/HCPCS: 77067; 93005 ==

== ENCOUNTER → 2023-08-03 | Outpatient (REF) | payer MEDICARE | LOC: DX 08:15 | PROVIDERS: ATTEND Internal Medicine Gastroenterology | DX: D64.9 Anemia, unspecified (principal) | CPT/HCPCS: 74250 ==

== ENCOUNTER → 2024-06-30 | Outpatient (REF) | payer MEDICARE ==
[~2024-06-30] MED LIST changes: +FARXIGA10 MG PO; +HYDRALAZINE HC100 MG PO; +HYDROCHLOROTHIA25 MG PO; +KLOR-CON 1010 MEQ PO; +METOCLOPRAMIDE10 MG PO; +VASCEPA1 GM PO; +metoprolol ER PO
== END ==
LOC: DX 08:05
PROVIDERS: ATTEND Nurse Practitioner
DX: D64.9 Anemia, unspecified (principal)
CPT/HCPCS: 74250

== ENCOUNTER → 2024-10-18 | Outpatient (REF) | payer MEDICARE ==
[~2024-10-18] MED LIST changes: +VENTOLIN HFA18 GM INH
== END ==
LOC: MAMMO 08:33
PROVIDERS: ATTEND Family Medicine
DX: Z12.31 Encounter for screening mammogram for malignant neoplasm of breast (principal)
CPT/HCPCS: 77067